=== PATIENT | female | born 1980 | race Caucasian/White ===

== ENCOUNTER 2017-09-28 14:17 | Outpatient (CLI) | payer MEDICAID, OTHER ==
[2017-09-28 19:10] LABS: BASOPHILS % (AUTO) 0.3 %; EOSINOPHILS # (AUTO) 0.1 10^3/uL (0.0-0.7); EOSINOPHILS % (AUTO) 0.8 %; HGB - HEMOGLOBIN 12.1 g/dL (12.0-16.0); LYMPHOCYTES # (AUTO) 1.9 10^3/uL (1.5-3.5); LYMPHOCYTES % (AUTO) 21.8 %; MEAN CORPUSCULAR HGB CONC 33.3 g/dL (32.0-36.0); MEAN CORPUSCULAR VOLUME 90.1 fL (81.0-99.0); MEAN PLATELET VOLUME 10.8 fL (7.9-10.8); MONOCYTES # (AUTO) 0.7 10^3/uL (0.0-1.0); MONOCYTES % (AUTO) 8.6 %; NEUTROPHILS % (AUTO) 68.5 %; PLT - PLATELET COUNT 281 10^3/uL (130-450); RED BLOOD COUNT 4.02 10^6/uL (4.20-5.40); RED CELL DISTRIBUTION WIDTH 14.1 % (12.0-15.0); WHITE BLOOD COUNT 8.7 x10^3/uL (4.8-10.8)
[2017-09-28 19:12] LABS: BILIRUBIN,URINE NEGATIVE (NEGATIVE); GLUCOSE, URINE (UA) NEGATIVE (NEGATIVE); KETONES,URINE (UA) NEGATIVE (NEGATIVE); LEUKOCYTE ESTERASE, URINE NEGATIVE (NEGATIVE); NITRITE,URINE NEGATIVE (NEGATIVE); OCCULT BLOOD,URINE NEGATIVE (NEGATIVE); PROTEIN,URINE NEGATIVE (NEGATIVE); UROBILINOGEN,URINE 0.2 (NORMAL) E.U./dL (NORMAL)
[2017-09-28 19:44] LABS: AMORPHOUS SEDIMENT,UR Marked /LPF; BACTERIA,URINE Few /HPF (None Seen); CLARITY,URINE CLOUDY (CLEAR); RBC,URINE 0-5 /HPF (0-5); SQUAMOUS EPITHELIAL CELL,UR MOD Squamous (<= Few)
[2017-09-29 14:18] LABS: HIV AG/AB 4TH GEN NON-REACTIVE (NON-REACTIVE)
[2017-09-29 14:31] LABS: HEPATITIS B SURFACE ANTIGEN NON-REACTIVE (NON-REACTIVE)
== END 2017-09-28 14:18 | disposition home or self-care (01) ==
LOC: LAB.N 14:17
PROVIDERS: ATTEND Obstetrics & Gynecology
DX: Z34.81 Encounter for supervision of other normal pregnancy, first trimester (principal)
CPT/HCPCS: 36415; 81001; 81599; 85025; 86762; 86850; 86900; 86901; 87340; 87389

== ENCOUNTER 2017-11-15 08:00 | Outpatient (CLI) | payer OTHER | END 2017-11-15 08:01 | disposition home or self-care (01) | LOC: LAB.N 08:00 | PROVIDERS: ATTEND Obstetrics & Gynecology | DX: Z36.0 Encounter for antenatal screening for chromosomal anomalies (principal) | CPT/HCPCS: 36415; 81599; 82105; 82677; 84702; 86336 ==

== ENCOUNTER 2017-12-22 12:49 | Outpatient (CLI) | payer OTHER ==
--- NOTE | 2017-12-22 16:02 | Ultrasound Report ---
OB ULTRASOUND: 12/22/2017 CLINICAL INDICATION: anatomy. TECHNIQUE: Real-time scanning was performed with fuels sales representative static images obtained. LAST MENSTRUAL PERIOD 07/26/2017 Clinical Age 21 weeks 2 days US Age 20 weeks 6 days EFW Hadlock 382 grams EFW% Hadlock -- Heart Rate 151 bpm EDC 05/02/2018 US EDC 05/05/2018 BPD Hadlock 20 weeks 6 days; Mean mm 49 HC Hadlock 21 weeks 1 day; Mean mm 188 AC Hadlock 20 weeks 6 days; Mean mm 157 FL Hadlock 20 weeks 5 days; Mean mm 34 Presentation variable Placental Location anterior Cervical Length TA 5.2 cm Amniotic Fluid subjectively normal; MVP 4.7 cm FINDINGS There is a single viable intrauterine gestation, in variable position. heart rate is 151 BPM. The placenta is anterior, without evidence of previa. Amniotic fluid volume is subjectively normal, with a deepest pocket of 4.7 cm. By size, the fetus measures 20 weeks 6 days ( 21 weeks 2 days by LMP). The following anatomic structures were visualized and appear normal: The intracranial contents, including the ventricles and posterior fossa; the heart, including 4 chamber view and outflow tracts, and diaphragm; the abdominal contents, including the stomach, the bilateral kidneys, and urinary bladder, as well as a normal 3-vessel cord insertion; 4 limbs. Imaging of the spine and facial structures was limited by positioning. No free fluid or adnexal lesion is appreciated. IMPRESSION: SINGLE VIABLE INTRAUTERINE GESTATION, WITH SIZE IN KEEPING WITH LMP DATING. SUBOPTIMAL VISUALIZATION OF THE SPINE AND FACIAL STRUCTURES, SECONDARY TO POSITIONING. TD: 12/22/2017 15:34 [facility]
== END 2017-12-22 12:50 | disposition home or self-care (01) ==
LOC: DI 12:49
PROVIDERS: ATTEND Obstetrics & Gynecology
DX: Z36.9 Encounter for antenatal screening, unspecified (principal)
CPT/HCPCS: 76811

== ENCOUNTER 2018-01-23 08:00 | Outpatient (CLI) | payer OTHER ==
[2018-01-23 19:21] LABS: HGB - HEMOGLOBIN 10.8 g/dL (12.0-16.0); MEAN CORPUSCULAR HEMOGLOBIN 28.7 pg (27.0-31.0); MEAN CORPUSCULAR HGB CONC 33.2 g/dL (32.0-36.0); MEAN CORPUSCULAR VOLUME 86.6 fL (81.0-99.0); MEAN PLATELET VOLUME 10.2 fL (7.9-10.8); RED BLOOD COUNT 3.78 10^6/uL (4.20-5.40); RED CELL DISTRIBUTION WIDTH 13.7 % (12.0-15.0); WHITE BLOOD COUNT 9.5 x10^3/uL (4.8-10.8)
== END 2018-01-23 08:01 | disposition home or self-care (01) ==
LOC: LAB.N 08:00
PROVIDERS: ATTEND Obstetrics & Gynecology
DX: Z34.90 Encounter for supervision of normal pregnancy, unspecified, unspecified trimester (principal)
CPT/HCPCS: 36415; 82950; 86850

== ENCOUNTER 2018-02-26 09:26 | Outpatient (CLI) | payer OTHER ==
--- NOTE | 2018-02-26 18:59 | Ultrasound Report ---
LIMITED OB ULTRASOUND: 02/26/2018 HISTORY: Suboptimal visualization of spine and facial structures on the 2017 anatomic ultrasound. TECHNIQUE: Real-time scanning by the inspector returned materials with saved static images reviewed. FINDINGS: First ultrasound 11/25/2017, EGA 30 weeks 2 days, DIMA 05/05/2018. Ultrasound measurements today: Biparietal diameter 7.9 cm, 31 weeks 6 days. Head circumference 30 cm, 33 weeks 2 days. Abdominal circumference 25.8 cm, 30 weeks. Femur length 5.9 cm, 30 weeks 4 days. Composite age by ultrasound measurements today 31 weeks 3 days, DIMA 04/27/2018. Estimated weight 1609 grams in the 49th percentile. cardiac activity 146 BPM. Presentation cephalic. Placenta position anterior. Amniotic fluid index 8.3 cm, MVP 4 cm. The spine is well seen today and no anomalies are identified. A profile cannot be obtained. nose and lips appear unremarkable. IMPRESSION: SINGLE INTRAUTERINE GESTATION. AGE BY COMPOSITE ULTRASOUND MEASUREMENTS TODAY 31 WEEKS 3 DAYS, DIMA 04/27/2018. ESTIMATED WEIGHT 49TH PERCENTILE. CERVIX LENGTH 5.4 CM. SPINE IS GROSSLY UNREMARKABLE. TD: 02/26/2018 16:13 [facility]
== END 2018-02-26 09:27 | disposition home or self-care (01) ==
LOC: DI 09:26
PROVIDERS: ATTEND Obstetrics & Gynecology
DX: Z36.2 Encounter for other antenatal screening follow-up (principal)
CPT/HCPCS: 76816

== ENCOUNTER 2018-03-09 08:04 | Outpatient (CLI) | payer OTHER | END 2018-03-09 08:05 | disposition home or self-care (01) | LOC: LAB 08:04 | PROVIDERS: ATTEND Obstetrics & Gynecology | DX: O99.810 Abnormal glucose complicating pregnancy (principal) | CPT/HCPCS: 36415; 82951; 82952 ==

== ENCOUNTER 2018-03-16 14:54 | Outpatient (CLI) | payer OTHER | END 2018-03-16 14:55 | disposition home or self-care (01) | LOC: LAB.R 14:54 | PROVIDERS: ATTEND Obstetrics & Gynecology | DX: R35.0 Frequency of micturition (principal) | CPT/HCPCS: 87086 ==

== ENCOUNTER 2018-03-23 15:24 | Outpatient (CLI) | payer OTHER ==
[2018-03-23 15:53] LABS: BILIRUBIN,URINE NEGATIVE (NEGATIVE); GLUCOSE, URINE (UA) NEGATIVE (NEGATIVE); KETONES,URINE (UA) NEGATIVE (NEGATIVE); LEUKOCYTE ESTERASE, URINE TRACE (NEGATIVE); NITRITE,URINE NEGATIVE (NEGATIVE); OCCULT BLOOD,URINE NEGATIVE (NEGATIVE); PROTEIN,URINE NEGATIVE (NEGATIVE); UROBILINOGEN,URINE 0.2 (NORMAL) E.U./dL (NORMAL)
[2018-03-23 15:58] LABS: CREATININE 0.7 mg/dL (0.4-1.0); URIC ACID 4.3 mg/dL (2.6-7.2)
[2018-03-23 16:07] LABS: CLARITY,URINE CLEAR (CLEAR)
[2018-03-23 16:08] LABS: BACTERIA,URINE None Seen /HPF (None Seen); RBC,URINE 0-5 /HPF (0-5); SQUAMOUS EPITHELIAL CELL,UR FEW Squamous (<= Few)
== END 2018-03-23 15:25 | disposition home or self-care (01) ==
LOC: LAB 15:24
PROVIDERS: ATTEND Obstetrics & Gynecology
DX: R03.0 Elevated blood-pressure reading, without diagnosis of hypertension (principal)
CPT/HCPCS: 36415; 81001; 82565; 83615; 84450; 84550

== ENCOUNTER 2018-03-30 12:47 | Outpatient (CLI) | payer OTHER | END 2018-03-30 12:48 | disposition home or self-care (01) | LOC: LAB.R 12:47 | PROVIDERS: ATTEND Obstetrics & Gynecology | DX: Z36.85 Encounter for antenatal screening for Streptococcus B (principal) | CPT/HCPCS: 87081 ==

== ENCOUNTER 2018-04-19 14:35 | Outpatient (CLI) | payer OTHER ==
--- NOTE | 2018-04-19 16:54 | Ultrasound Report ---
Procedure Date: 04/19/2018 Accession Number: [id number] / [id number] Procedure: US - OB F/U or Repeat CPT Code: FULL RESULT: EXAM: OB F/U or Repeat DATE: 04/19/2018 3:40 PM CLINICAL HISTORY: UTERINE SIZE-DATE DISCREPANCY, 3RD TRIM TECHNIQUE: Real-time scanning was performed with public health representative static images obtained. COMPARISON: 02/26/2018. LAST MENSTRUAL PERIOD: 07/26/2017 Clinical Age: 38 weeks 1 days US Age: 36 weeks 2 days EFW Hadlock: 2980 grams EFW % Hadlock: 33% Heart Rate: 135 bpm EDC: 05/02/2018 US EDC: 05/15/2018 BPD Hadlock: 37 weeks 0 days; Mean mm 91 HC Hadlock: 35 weeks 3 days; Mean mm 316 AC Hadlock: 36 weeks 2 days; Mean mm 323 FL Hadlock: 36 weeks 1 days; Mean mm 70 Presentation: Vertex Placental Location: Anterior Amniotic Fluid: TAB 10.5 cm; MVP 5.5 cm FINDINGS: A single live intrauterine gestation in vertex presentation with an anterior placenta without evidence of previa is identified with a heart rate of 135 beats per minutes. IMPRESSION: Single live intrauterine gestation with an ultrasound age of 36 weeks and 2 days on today's exam.
== END 2018-04-19 14:36 | disposition home or self-care (01) ==
LOC: DI 14:35
PROVIDERS: ATTEND Obstetrics & Gynecology
DX: O26.843 Uterine size-date discrepancy, third trimester (principal)
CPT/HCPCS: 76816

== ENCOUNTER 2018-04-26 16:04 | Outpatient (CLI) | payer OTHER ==
[2018-04-26 17:04] LABS: BASOPHILS # (AUTO) 0.1 10^3/uL (0.0-0.1); BASOPHILS % (AUTO) 0.6 %; EOSINOPHILS # (AUTO) 0.1 10^3/uL (0.0-0.7); EOSINOPHILS % (AUTO) 1.5 %; LYMPHOCYTES # (AUTO) 1.7 10^3/uL (1.5-3.5); MEAN CORPUSCULAR HEMOGLOBIN 25.7 pg (27.0-31.0); MEAN CORPUSCULAR HGB CONC 32.3 g/dL (32.0-36.0); MEAN CORPUSCULAR VOLUME 79.4 fL (81.0-99.0); MEAN PLATELET VOLUME 10.3 fL (7.9-10.8); MONOCYTES # (AUTO) 0.7 10^3/uL (0.0-1.0); MONOCYTES % (AUTO) 7.3 %; NEUTROPHILS # (AUTO) 6.6 10^3/uL (1.5-6.6); NEUTROPHILS % (AUTO) 72.6 %; PLT - PLATELET COUNT 308 10^3/uL (130-450); RED BLOOD COUNT 3.89 10^6/uL (4.20-5.40); RED CELL DISTRIBUTION WIDTH 15.9 % (12.0-15.0); WHITE BLOOD COUNT 9.2 x10^3/uL (4.8-10.8)
[2018-04-26 17:07] LABS: CREATININE 0.6 mg/dL (0.4-1.0)
[2018-04-26 17:12] LABS: URIC ACID 4.4 mg/dL (2.6-7.2)
[2018-04-26 17:18] LABS: BILIRUBIN,URINE NEGATIVE (NEGATIVE); GLUCOSE, URINE (UA) NEGATIVE (NEGATIVE); KETONES,URINE (UA) NEGATIVE (NEGATIVE); LEUKOCYTE ESTERASE, URINE SMALL (NEGATIVE); NITRITE,URINE NEGATIVE (NEGATIVE); OCCULT BLOOD,URINE TRACE-LYSE (NEGATIVE); PROTEIN,URINE NEGATIVE (NEGATIVE); UROBILINOGEN,URINE 0.2 (NORMAL) E.U./dL (NORMAL)
[2018-04-26 17:22] LABS: CLARITY,URINE CLEAR (CLEAR)
[2018-04-26 17:27] VITALS: BP 137/81
[2018-04-26 17:34] LABS: BACTERIA,URINE Few /HPF (None Seen); RBC,URINE 0-5 /HPF (0-5); SQUAMOUS EPITHELIAL CELL,UR MANY Squamous (<= Few)
[2018-04-26 17:37] LABS: CREATININE,URINE 48.9 mg/dL
[2018-04-26 17:40] LABS: TOTAL PROTEIN,URINE TIMED < 6 mg/dL
== END 2018-04-26 19:02 | disposition home or self-care (01) ==
LOC: WFO 16:04 → FBP 16:05 → WFO 19:02
PROVIDERS: ATTEND Obstetrics & Gynecology
DX: O13.3 Gestational [pregnancy-induced] hypertension without significant proteinuria, third trimester (principal); Z3A.39 39 weeks gestation of pregnancy
CPT/HCPCS: 36415; 81001; 81003; 82565; 82570; 83615; 84156; 84450; 84550; 85025; 87086; 99214

== ENCOUNTER 2018-04-26 21:36 | Inpatient (IN) | payer OTHER ==
--- NOTE | 2018-04-26 19:56 | HISTORY & PHYSICAL EXAMINATION ---
DATE OF SERVICE: 04/26/2018 Physician: Steve Verde MD LABOR AND DELIVERY ENCOUNTER NOTE DIAGNOSIS: Gestational hypertension (mild), 38-week 1-day gestation, elderly mother, reactive nonstress test. HISTORY OF PRESENT ILLNESS: Patient is a 37-year-old , 2, para 1-0-0-1 woman at 39 weeks 1 day gestation who [facility] Recently, she has been noted to have labile blood pressure. Her blood pressure on 04/19/2018 was 158/90. She has mild edema, but no visual changes or epigastric tenderness. She has no prepregnancy history of hypertension. Today, she was checked in the office by Dr. Colón and blood pressures were noted to be elevated at 144/90 and 144/88. She reports good movement. She was sent for NST, which was reactive with a baseline in the 130s. Previously, she was noted to have a lagging fundal height and her fetus is at the 30th percentile. We had a detailed discussion of gestational hypertension and current recommendations for induction. She is beyond 38 weeks and induction is recommended due to the possibility of suboptimal outcome such as maternal seizure, poor outcome, abruption, distress and possible emergent section. Patient states that she wants to talk to her mother prior to committing to induction. Additionally, her son is in school and she may have conflicting motivations to arrange childcare. The risks and benefits of induction were discussed. PHYSICAL EXAMINATION GENERAL: Anxious, alert, oriented. VITAL SIGNS: Blood pressure is now 130s/80s. HEENT: Supple neck. No thyromegaly. EOMI. LUNGS: Clear. CARDIAC: Regular. ABDOMEN: No epigastric tenderness. UTERUS: Acontractile. NST: Reactive. EXTERNAL GENITALIA: No lesions. VAGINA: No blood or discharge. CERVIX: 1 cm, 30% effaced, -1 to 2 cm (close to last week's baseline). EXTREMITIES: 1+ tibial edema extending up 3 cm. NEUROLOGIC: Cranial nerves grossly intact. Motor and sensory are grossly intact. Patellar reflexes 2+ left, 3+ right, 1 beat of clonus left, no right. LABORATORY DATA: Preeclampsia labs normal. ASSESSMENT: Patient realizes the risk associated with delaying Induction and delivery but she finds that induction to be best for her schedule tomorrow. She hopes to get all of her resources together so that she can be induced over the weekend. She is given warning sign and callback instructions. She realizes potential problems associated with delayed induction. PLAN: Patient will attempt to be available tomorrow afternoon for induction. If not, we will begin a biweekly NST and blood pressure checks with periodic urine creatinine-protein ratio. TD: 04/26/2018 18:59 REVISED: ORIG. SIGNED 04/27/2018@0758 ACCT CORRECTION 04/30/2018 sherrie MTDD
[2018-04-26] MEDS ORDERED: ONDANSETRON 4 MG/2 ML VIAL IVP PRN (22:17)
[2018-04-26] MEDS ORDERED: fentaNYL 100 MCG/2 ML VIAL IVP PRN (22:17)
[2018-04-26] MEDS ORDERED: SODIUM CHLORIDE FLUSH 0.9% 10 ML SYRINGE IVP PRN (22:17)
[2018-04-26] MEDS ORDERED: DINOPROSTONE 10 MG SUPP VG ONE (22:23)
[2018-04-26] MEDS ORDERED: ZOLPIDEM 5 MG TABLET PO PRN (22:24)
[2018-04-27 01:38] LABS: BASOPHILS # (AUTO) 0.3 10^3/uL (0.0-0.1); EOSINOPHILS # (AUTO) 0.1 10^3/uL (0.0-0.7); EOSINOPHILS % (AUTO) 1.1 %; HGB - HEMOGLOBIN 9.5 g/dL (12.0-16.0); LYMPHOCYTES # (AUTO) 1.4 10^3/uL (1.5-3.5); LYMPHOCYTES % (AUTO) 13.5 %; MEAN CORPUSCULAR HEMOGLOBIN 25.7 pg (27.0-31.0); MEAN CORPUSCULAR HGB CONC 33.1 g/dL (32.0-36.0); MEAN CORPUSCULAR VOLUME 77.7 fL (81.0-99.0); MEAN PLATELET VOLUME 10.1 fL (7.9-10.8); MONOCYTES # (AUTO) 0.8 10^3/uL (0.0-1.0); MONOCYTES % (AUTO) 7.6 %; NEUTROPHILS # (AUTO) 7.9 10^3/uL (1.5-6.6); NEUTROPHILS % (AUTO) 74.8 %; PLT - PLATELET COUNT 269 10^3/uL (130-450); RED BLOOD COUNT 3.67 10^6/uL (4.20-5.40); RED CELL DISTRIBUTION WIDTH 15.7 % (12.0-15.0); WHITE BLOOD COUNT 10.5 x10^3/uL (4.8-10.8)
[2018-04-27] MEDS: SODIUM CHLORIDE FLUSH 0.9% 10 ML SYRINGE IVP SCH ×3 (01:40→17:55)
[2018-04-27] MEDS: ACETAMINOPHEN 325 MG TABLET PO SCH ×4 (08:58→17:55)
[2018-04-27] MEDS: LACTATED RINGERS 1,000 ML IV SCH ×4 (08:58→16:50)
[2018-04-27] MEDS ORDERED: miSOPROStol 100 MCG TABLET BC SCH (15:29)
--- NOTE | 2018-04-27 16:32 | PROVIDER PROGRESS NOTE ---
Subjective - Prog Note Date Prog Note Date: 04/27/18 Prog Note Time: 16:29 - Subjective Subjective: Patient sitting in the chair. Feeling some contractions. Very upbeat. Excited to have the baby. Objective - Vital Signs/Intake & Output Vital Signs: Vital Signs x48h Temp Pulse Resp BP Pulse Ox 04/27/18 13:00 98.6 F 84 18 132/82 H 100 04/27/18 09:00 98.4 F 78 18 137/68 H 100 - Objective General Appearance: positive: No acute distress Eyes Bilateral: positive: Normal inspection Abdomen: positive: Non-tender (Gravid) Neurologic/Psychiatric: positive: Oriented x3 - Lab Results Fish Bones: 04/27/18 01:05 Other Labs: Lab Results x24hrs 04/27/18 Range/Units 01:05 WBC 10.5 (4.8-10.8) x10^3/uL RBC 3.67 L (4.20-5.40) 10^6/uL Hgb 9.5 L (12.0-16.0) g/dL Hct 28.5 L (37.0-47.0) % MCV 77.7 L (81.0-99.0) fL MCH 25.7 L (27.0-31.0) pg MCHC 33.1 (32.0-36.0) g/dL RDW 15.7 H (12.0-15.0) % Plt Count 269 (130-450) 10^3/uL MPV 10.1 (7.9-10.8) fL Neut # (Auto) 7.9 H (1.5-6.6) 10^3/uL Lymph # (Auto) 1.4 L (1.5-3.5) 10^3/uL [place]hel # (Auto) 0.8 (0.0-1.0) 10^3/uL Eos # (Auto) 0.1 (0.0-0.7) 10^3/uL Baso # (Auto) 0.3 H (0.0-0.1) 10^3/uL Absolute Nucleated RBC 0.01 x10^3/uL Nucleated RBC % 0.0 /100WBC - Other Results/Comments Other Results/Comments: CVE 2-3/50/-2 FHT's: Baseline 150's with category 1 tracing. Good LVT. No decels. Contractions: Q2-6 min Assessment/Plan - Problem List (1) Gestational hypertension Impression: 37 yo with a 39w2d IUP Gestational HTN, currently stable Cervix remote from delivery No S/s pre-eclampsia Given current frequency of contractions will start pitocin. AROM when cervix has descended more. Patient desires to go naturally. Declining Nitrox and epidural at this point in time. Qualifiers: Trimester: third trimester Qualified Code(s): O13.3 - Gestational [ -induced] hypertension without significant proteinuria, third trimester
[2018-04-27] MEDS ORDERED: OXYTOCIN/SODIUM CHLORIDE 500 ML IV SCH (17:00)
[2018-04-27] MEDS ORDERED: MORPHINE 10 MG/ML VIAL IVP ONE (23:00)
[2018-04-27] MEDS ORDERED: PROMETHAZINE 25 MG/1 ML VIAL IM SCH (23:01)
[2018-04-28] MEDS: SODIUM CHLORIDE FLUSH 0.9% 10 ML SYRINGE IVP SCH (06:26)
[2018-04-28] MEDS ORDERED: LACTATED RINGERS 1,000 ML IV ONE (06:38)
[2018-04-28] MEDS: LACTATED RINGERS 1,000 ML IV SCH (06:42)
[2018-04-28] MEDS: ACETAMINOPHEN 325 MG TABLET PO SCH ×4 (06:57→18:59)
[2018-04-28] MEDS ORDERED: fent/BUPIV 2 MCG/0.125% 250 ML EP ONE (09:53)
[2018-04-28] MEDS ORDERED: ROPIVACAINE 0.2% PF 20 ML AMPULE ONE (09:54)
[2018-04-28 10:44] LABS: HGB - HEMOGLOBIN 10.8 g/dL (12.0-16.0); MEAN CORPUSCULAR HEMOGLOBIN 25.3 pg (27.0-31.0); MEAN CORPUSCULAR HGB CONC 33.2 g/dL (32.0-36.0); MEAN CORPUSCULAR VOLUME 76.1 fL (81.0-99.0); MEAN PLATELET VOLUME 9.8 fL (7.9-10.8); RED BLOOD COUNT 4.27 10^6/uL (4.20-5.40); RED CELL DISTRIBUTION WIDTH 15.7 % (12.0-15.0)
[2018-04-28 10:56] LABS: ALBUMIN/GLOBULIN RATIO 0.8 (1.0-2.2); BILIRUBIN,TOTAL 0.4 mg/dL (0.2-1.0); CALCIUM 8.3 mg/dL (8.5-10.3); CREATININE 0.6 mg/dL (0.4-1.0); TOTAL PROTEIN 6.8 g/dL (6.7-8.2)
--- NOTE | 2018-04-28 11:01 | PROVIDER PROGRESS NOTE ---
Labor Progress Note - Uterine Monitoring Uterine Monitoring Mode: positive: External toco Contraction Frequency (min/apart): q3 min Contraction Intensity: positive: Strong Uterine Resting Tone: positive: Soft Other Uterine Monitorin-80 second contraction duration - Monitoring Monitor Mode: positive: External ultrasound Heart Rate Baseline: 145 Heart Rate Variability: positive: Moderate (6-25 bmp) Accelerations: positive: Present, 15x15 Decelerations: positive: Early, Variable Strip Review: positive: Category II - Vaginal Exam Dilation (in cm): 6 Effacement (%): 100 Station: -1 Cervical Position: Anterior - Labor Progress Note Labor Progress Note/Additional Text: S: Vaishali is slightly more comfortable w/ her epidural in place. She is still having significant RLQ discomfort w/ her uterine contractions & is breathing through them. She feels exhausted. Her mother & sister are present @ the bedside & are involved & very supportive. O: AAOx3, uncomfortable gravid female VSS BPs 140s/80s PET labs stable, platelets stable @295K, LFTs stable EFM: BL 145bpm, + accels, +early & variable decels to ophelia in 80s w/ spontaneous return to baseline w/in 60 seconds, two prolonged decelerations to ophelia in 90s s/ return to baseline w/ intrauterine resuscitative measures TOCO: UCs q 3 min x60-80 seconds w/ 3mU/min of Pitocin infusing SVE: 6/100/-1 AROM BBOW for moderate CAF A: 37 y/o @ 38 weeks' gestation, IOL for gestational HTN w/o s/sx PET GBS negative FHTs cat II w/o evidence of hypoxemia Progressive cervical change w/ Pitocin infusion Adequate pain control w/ epidural in place P: 1. Continue Pitocin infusion & titrate per protocol to maintain adequate labor pattern by tocometry 2. Reposition such that region of persistent discomfort is dependent to improve quality of anesthesia 3. Ongoing careful monitoring of FHTs w/ intrauterine resuscitative measures as indicated 4. Reassess cervical status x4 hours, earlier PRN 5. Reviewed optimal maternal positioning to facilitate descent & reviewed anticipatory guidance for 2nd stage labor 6. Encouraged maternal rest 7. Reviewed plan of care w/ pt, family & RN @ bedside; all in agreement, without concerns.
[2018-04-28] MEDS ORDERED: HYDROCORTISONE 1% CREAM 28 GM TUBE PR PRN (12:55)
[2018-04-28] MEDS ORDERED: OXYTOCIN/SODIUM CHLORIDE 250 ML IV ONE (12:55)
[2018-04-28] MEDS ORDERED: MAGNESIUM HYDROXIDE 2,400 MG/30 ML UDC PO PRN (12:55)
[2018-04-28] MEDS ORDERED: WITCH HAZEL/GLYCERIN 1 EACH MED..PAD TOP PRN (12:55)
[2018-04-28] MEDS ORDERED: HYDROCORTISONE/PRAMOXINE 10 GM PR PRN (12:55)
--- NOTE | 2018-04-28 13:05 | DELIVERY NOTE ---
Delivery Note - Labor Labor: positive: Augmented by ARM, Induced by oxytocin - Delivery Method Infant Delivery Method: positive: Spontaneous vaginal delivery - Presentation Presentation: positive: Vertex, MIKE - right occiput anterior - Nuchal Cord Nuchal Cord: positive: Present (R shoulder cord; baby somersaulted through w/ delivery of body) - Anesthetic Anesthetic Type: - Amniotic Fluid Description Amniotic Fluid Description: positive: Clear - Episiotomy Type Episiotomy Type: positive: None - Laceration Laceration: positive: 2nd degree, Vaginal - Suture Suture Type: positive: Vicryl Suture Size: positive: 2-0 - Delivery Outcome Delivery Outcome: positive: Livebirth - : positive: Placed in direct skin contact with mother, Stimulated, [place] used sex: positive: Female - Cord Cord: positive: 3 vessels - Placenta Placenta: positive: Spontaneous - Estimated Blood Loss Estimated Blood Loss (in cc): 300 - Post Delivery Events Post Delivery Events: positive: No post delivery events - Delivery Comments (Free Text/Narrative) Delivery Comments (Free Text/Narrative): Vaishali Smith is a 37 y/o [id number] who presented for preinduction cervical ripening for GHTN @ 39w2d w/o s/sx PET. She received 1 dose of vaginal cervidil followed by 1 dose of buccal misoprostol & progressed steadily to 3cm dilatation, at which point, she received Pitocin infusion to maintain adequate contraction pattern by tocometry; max infusion rate of 3mU/min. She received one dose of IVP fentanyl for analgesia & ultimately an epidural for anesthesia @ 6cm dilatation. She underwent AROM for moderate CAF @ 6cm dilatation @ 10: 30am, for a total ruptured duration of 2 hours. She progressed steadily to complete dilatation @ 1233, for a total 1st stage duration of 6 hours. FHTs were monitored electronically t/o & were cat I-II & consistently overall reassuring w/o s/sx hypoxemia. She pushed w/ spontaneous urge to viable female in MIKE position over an intact perineum @ 1238, for a total 2nd stage duration of 5 minutes. Tight R shoulder cord noted w/ delivery & somersaulted through w/ delivery of body; vigorous w/ spontaneous, lusty cry; placed to maternal abdomen for drying/stim. Apgars 9/9. Delayed cord clamping until cessation of pulsation, then cord clamped x2 by CNM, cut by patient. 3VC noted, cord blood obtained. Active management of the 3rd stage w/ Pitocin in IV fluids. Placenta del spontaneously & intact, Rich, @ 1240, for a total 3rd stage duration of 2 minutes. FF @ U. Vagina & perineum inspected & 2nd degree vaginal laceration noted; repaired under epidural anesthesia w/ 2-0 vicryl. Hemostatic. EBL 300mL. Patient reports previously successful experience, intends to breastfeed this time. Infant nuzzling @ breast w/in 15 minutes of delivery. Mother & stable.
[2018-04-28] MEDS: CELECOXIB 100 MG CAPSULE PO SCH (22:01)
[2018-04-28] MEDS: DOCUSATE SODIUM 100 MG CAPSULE PO SCH (22:02)
[2018-04-29] MEDS: CELECOXIB 100 MG CAPSULE PO SCH (09:12)
[2018-04-29] MEDS: DOCUSATE SODIUM 100 MG CAPSULE PO SCH (09:13)
[2018-04-29] MEDS: ACETAMINOPHEN 325 MG TABLET PO SCH ×3 (11:32→14:04)
[2018-04-29] MEDS ORDERED: MEASLES,MUMPS & RUBELLA VACC 0.5 ML VIAL SUBQ ONE (12:45)
--- NOTE | 2018-04-29 15:09 | Discharge Plan ---
Discharge Plan Disposition: 01 Home, Self Care Condition: Good Diet: Regular Activity Restrictions: pelvic rest x6 weeks Shower Restrictions: No Driving Restrictions: No Weight Bearing: Full Weight Instruction Topics: Vaginal After, Breastfeed How To, Exercises Kegel No Smoking: If you smoke, Please STOP! Call for help. Follow-up with: Rivas Myers PA-C [Primary Care Provider] - Andreina Colón DO [Provider Admit Priv/Credential] -
--- NOTE | 2018-04-29 15:11 | DISCHARGE SUMMARY ---
"Discharge Summary Admit Date: 04/26/18 Discharge Date: 04/29/18 Discharging Provider: JUSTIN Code Status: Attempt Resuscitation Condition at Discharge: Good Discharge Disposition: 01 Home, Self Care Discharge Facility Name: [facility] - DIAGNOSES Admission Diagnoses: gestational HTN @ 39 weeks' gestation Discharge Diagnoses with Status of Each Condition: - HPI History of Present Illness: Vaishali Saavedra is a 37 y/o [id number] who presented for preinduction cervical ripening @ 39w2d for gestational htn w/o s/sx PET; she received 1 dose of vaginal cervidil & 1 dose of buccal misoprostol & then received Pitocin infusion to achieve active labor. She received epidural anesthesia per request for pain management & underwent AROM for CAF. She progressed steadily to complete dilatation & delivered a viable female vaginally over an intact perineum w/o complication. - CONSULTS | PROCEDURES Consultations: anesthesia Procedures: preinduction cervical ripening induction of labor epidural placement AROM - HOSPITAL COURSE Hospital Course: , Vaishali is doing well. She is ambulating & voiding w/o incident. She is passing flatus & tolerating a regular diet. She is well w / excellent latch & reports a previously successful experience. She reports minimal lochia rubra & her pain is well-controlled w/ non-opioid analgesia. She is not planning another @ this time & intends POPs for pp contraception. She is planning to return to work x2 weeks & her partner will have 1 week off to assist her at home; she reports excellent social support & denies a hx of pp depression. She is able to fully articulate pp warning s/sx, including pp depression s/sx, and pp aftercare instructions. She is ready to leave the hospital. - ALLERGIES Allergies/Adverse Reactions: Allergies Allergy/AdvReac Type Severity Reaction Status Date / Time No Known Drug Allergies Allergy Verified 02/13/15 19:14 - PHYSICAL EXAM AT DISCHARGE General Appearance: positive: No acute distress, Mild distress Eyes Bilateral: positive: Normal inspection, PERRL, EOMI Respiratory: positive: Chest non-tender, No respiratory distress, Breath sounds nml Cardiovascular: positive: Regular rate & rhythm, No murmur Abdomen: positive: Non-tender, No distention, Other (FF U-2) Skin: positive: Color nml, No rash, Warm, Dry Extremities: positive: Non-tender, Full ROM, Nml appearance, No pedal edema. negative: Calf tenderness, Amanda's sign/cords Neurologic/Psychiatric: positive: Oriented x3, CN's nml (2-12), Motor nml, Sensation nml, Mood/affect nml - LABS Result Diagrams: 04/28/18 10:36 04/28/18 10:36 - FOLLOW UP Follow Up: x1 week w/ Dru Clayton CNM, earlier PRN - TIME SPENT Time Spent in Discharge (Minutes): 20"
[2018-04-29 15:51] VITALS: BP 120/70
== END 2018-04-29 15:51 | disposition home or self-care (01) | DRG 775 ==
LOC: WFO 21:36 → FBP 21:37 → WFO 22:16 → FBP 22:17
PROVIDERS: ADMIT Obstetrics & Gynecology; ATTEND Registered Nurse
PROC: 3E033VJ Introduction of Other Hormone into Peripheral Vein, Percutaneous Approach (ICD-10-PCS; 2018-04-27)
PROC: 3E0P7VZ Introduction of Hormone into Female Reproductive, Via Natural or Artificial Opening (ICD-10-PCS; 2018-04-27)
PROC: 10E0XZZ Delivery of Products of Conception, External Approach (ICD-10-PCS; principal; 2018-04-28)
PROC: 0KQM0ZZ Repair Perineum Muscle, Open Approach (ICD-10-PCS; 2018-04-28)
PROC: 10907ZC Drainage of Amniotic Fluid, Therapeutic from Products of Conception, Via Natural or Artificial Opening (ICD-10-PCS; 2018-04-28)
DX: O13.3 Gestational [pregnancy-induced] hypertension without significant proteinuria, third trimester (principal); O69.89X0 Labor and delivery complicated by other cord complications, not applicable or unspecified; O76 Abnormality in fetal heart rate and rhythm complicating labor and delivery; O70.1 Second degree perineal laceration during delivery; Z37.0 Single live birth; Z3A.39 39 weeks gestation of pregnancy
CPT/HCPCS: 36415; 59200; 80053; 81001; 81003; 82565; 82570; 83615; 84156; 84450; 84550; 85025; 85027; 86850; 86900; 86901; 87086; 99214

== ENCOUNTER 2018-07-21 18:48 | Emergency (ER) | payer OTHER ==
[2018-07-21 18:52] VITALS: BP 137/76
[2018-07-21] MEDS ORDERED: CETIRIZINE 10 MG TABLET PO STA (20:15)
--- NOTE | 2018-07-21 20:19 | ED Physician Documentation ---
PD HPI URI - Stated complaint Stated Complaint: SORE THROAT - Chief complaint Chief Complaint: Heent - History obtained from History obtained from: Patient, Friend - History of Present Illness Timing - onset: How many weeks ago (1) Timing duration: Weeks (1) Timing details: Gradual onset Pain level max: 6 Pain level now: 5 Associated symptoms: Nasal congestion, Rhinorrhea, Sore throat, Dry cough. No: Fever, Chills, Chest pain, Dyspnea, NVD Contributing factors: Sick contact. No: Travel, Immunocompromised, Unimmunized, COPD / asthma Improves by: Rest Worsened by: Activity, Breathing - Additional information Additional information: Patient states she is not , breast-feeding or trying to become Review of Systems Constitutional: denies: Fever, Chills GI: denies: Vomiting, Diarrhea : denies: Dysuria, Now EGA Skin: denies: Rash Musculoskeletal: denies: Neck pain, Back pain PD PAST MEDICAL HISTORY - Past Medical History Past Medical History: No - Past Surgical History Past Surgical History: No - Present Medications Home Medications: Ambulatory Orders Medication Instructions Recorded Confirmed Benzonatate [Tessalon Perle] 100 - 200 mg PO TID PRN #30 capsule 07/21/18 Cetirizine HCl/Pseudoephedrine 1 each PO BID PRN #30 tab.er.12h 07/21/18 [Zyrtec-D Tablet] - Allergies Allergies/Adverse Reactions: Allergies Allergy/AdvReac Type Severity Reaction Status Date / Time No Known Drug Allergies Allergy Verified 07/21/18 18:52 - Social History Does the pt smoke?: No Smoking Status: Never smoker Does the pt drink ETOH?: Yes Does the pt have substance abuse?: No - Immunizations Immunizations are current?: Yes - POLST Patient has POLST: No PD ED PE NORMAL - Vitals Vital signs reviewed: Yes - General General: Alert and oriented X 3, No acute distress - HEENT HEENT: PERRL, Ears normal, Moist mucous membranes, Pharynx benign - Neck Neck: Supple, no meningeal sign, No adenopathy - Cardiac Cardiac: RRR, Strong equal pulses - Respiratory Respiratory: No respiratory distress, Clear bilaterally - Abdomen Abdomen: Soft, Non tender, Non distended - Derm Derm: Warm and dry, No rash - Neuro Neuro: Alert and oriented X 3 - Psych Psych: Normal mood, Normal affect Results - Vitals Vitals: Vital Signs - 24 hr 07/21/18 18:50 Temperature 36.9 C Heart Rate 72 Respiratory 18 Rate Blood Pressure 137/76 H O2 Saturation 99 Oxygen O2 Source Room air - Labs Labs: Laboratory Tests 07/21/18 19:30 Group A Strep Rapid Negative PD MEDICAL DECISION MAKING - ED course Complexity details: reviewed results, considered differential, d/w patient ED course: Patient is a 30-year-old female who presents to the emergency department with what appears to be a viral upper respiratory infection. Rapid strep is negative. No evidence of pneumonia. No respiratory distress or hypoxia. We will continue supportive care and follow-up with her doctor. Given a dose of dexamethasone here. Also given a dose of Zyrtec. Patient counseled regarding signs and symptoms for which I believe and urgent re-evaluation would be necessary. Patient with good understanding of and agreement to plan and is comfortable going home at this time This document was made in part using voice recognition software. While efforts are made to proofread this document, sound alike and grammatical errors may occur. Departure - Departure Disposition: 01 Home, Self Care Clinical Impression: Viral URI with cough Condition: Good Instructions: ED URI Viral Follow-Up: Rivas Myers PA-C [Primary Care Provider] - As Needed Prescriptions: Benzonatate [Tessalon Perle] 100 - 200 mg PO TID PRN #30 capsule PRN Reason: Cough Cetirizine HCl/Pseudoephedrine [Zyrtec-D Tablet] 1 each PO BID PRN #30 tab.er.12h PRN Reason: Nasal Congestion Comments: Use the medications as prescribed. Return if you worsen. This should improve over the next week or so. Your strep test is negative today but a backup culture was sent and if it is positive we will call you with the results.
[2018-07-21] MEDS: DEXAMETHASONE 10 MG/ML VIAL PO STA ×2 (20:40→20:42)
== END 2018-07-21 20:47 | disposition home or self-care (01) ==
LOC: ED 18:48
DX: J06.9 Acute upper respiratory infection, unspecified (principal)
CPT/HCPCS: 87070; 87430; 99283; A9270

== ENCOUNTER 2019-01-20 15:13 | Outpatient (CLI) | payer OTHER ==
--- NOTE | 2019-01-21 09:49 | Ultrasound Report ---
Reason: TEST POSITIVE Procedure Date: 01/20/2019 Accession Number: [id number] / [id number] Procedure: US - OB First Trimester CPT Code: FULL RESULT: EXAM: FIRST TRIMESTER OBSTETRIC ULTRASOUND (Less than 11 weeks) EXAM DATE: 01/20/2019 04:48 PM. CLINICAL HISTORY: test positive. LMP: 11/15/2018. COMPARISONS: OB F/U OR REPEAT 04/19/2018 2:51 PM. TECHNIQUE: Transabdominal ultrasound examination with static image documentation. CLINICAL DATES: EGA 9 weeks 3 days with DIMA 08/22/2019 based on LMP. ASSESSMENT: Gestational Sac: Single intrauterine. Embryo: CRL (crown-rump length) 32.2 mm = 9 weeks 6 days with an DIMA of 08/19/2019. Cardiac activity: 167 beats per minute. Yolk sac: 5.8 mm. Amniotic fluid: Not accurately assessed at this gestational age. Early placenta: Not visible at this gestational age. Other: No perigestational fluid collection demonstrated. MATERNAL STRUCTURES: Uterus: Anteverted. Unremarkable. Cervix: Closed. Right Ovary/Adnexa: The ovary measures 2.7 x 1.6 x 1.8 cm, volume 4 cc. Unremarkable. Left Ovary/Adnexa: The ovary measures 5.2 x 3.7 x 4.7 cm, volume 47.2 cc. 3.9 x 3.3 x 3.8 cm. Anechoic left ovarian cyst noted. No concerning features are noted. Free Fluid: None. Other: None. IMPRESSION: 1. Single viable intrauterine at EGA 9 weeks 6 days with DIMA 08/19/2019 based on crown-rump length, which is concordant with clinical dates. 2. Assigned dating is DIMA 08/22/2019 based on LMP. 3. No complications such as a subchorionic hemorrhage. 4. 3.9 cm anechoic left ovarian cyst. Otherwise, both ovaries and adnexa are normal. RADIA
== END 2019-01-20 15:14 | disposition home or self-care (01) ==
LOC: DI 15:13
PROVIDERS: ATTEND Nurse Practitioner Obstetrics & Gynecology
DX: Z32.01 Encounter for pregnancy test, result positive (principal); O34.81 Maternal care for other abnormalities of pelvic organs, first trimester; N83.202 Unspecified ovarian cyst, left side; Z3A.09 9 weeks gestation of pregnancy
CPT/HCPCS: 76801

== ENCOUNTER 2019-02-01 08:00 | Outpatient (CLI) | payer OTHER ==
[2019-02-01 17:19] LABS: MUDS CUTOFF CONCENTRATIONS CUTOFF CONC BELOW:
[2019-02-01 18:06] LABS: AMPHETAMINE SCREEN,URINE NEGATIVE (NEGATIVE); BENZODIAZEPINES SCREEN, URINE NEGATIVE (NEGATIVE); COCAINE SCREEN URINE NEGATIVE (NEGATIVE); METHADONE SCREEN, URINE NEGATIVE (NEGATIVE); METHAMPHETAMINES SCREEN, URINE NEGATIVE (NEGATIVE); OPIATE SCREEN, URINE NEGATIVE (NEGATIVE); OXYCODONE SCREEN, URINE NEGATIVE (NEGATIVE); PROPOXYPHENE SCREEN, URINE NEGATIVE (NEGATIVE); TRICYCLIC ANTIDEPRESSANT,URINE NEGATIVE (NEGATIVE)
== END 2019-02-01 23:59 | disposition home or self-care (01) ==
LOC: LAB.R 08:00
PROVIDERS: ATTEND Obstetrics & Gynecology
DX: Z36.0 Encounter for antenatal screening for chromosomal anomalies (principal)
CPT/HCPCS: 80306

== ENCOUNTER 2019-02-01 15:31 | Outpatient (CLI) | payer OTHER ==
[2019-02-01 16:06] LABS: BILIRUBIN,URINE NEGATIVE (NEGATIVE); GLUCOSE, URINE (UA) NEGATIVE (NEGATIVE); KETONES,URINE (UA) NEGATIVE (NEGATIVE); LEUKOCYTE ESTERASE, URINE TRACE (NEGATIVE); NITRITE,URINE NEGATIVE (NEGATIVE); OCCULT BLOOD,URINE NEGATIVE (NEGATIVE); PROTEIN,URINE NEGATIVE (NEGATIVE); UROBILINOGEN,URINE 0.2 (NORMAL) E.U./dL (NORMAL)
[2019-02-01 16:09] LABS: CLARITY,URINE CLEAR (CLEAR)
[2019-02-01 16:12] LABS: BACTERIA,URINE Moderate /HPF (None Seen); RBC,URINE None Seen /HPF (0-5); SQUAMOUS EPITHELIAL CELL,UR MANY Squamous (<= Few); WBC CLUMPS,URINE PRESENT
[2019-02-01 16:17] LABS: BASOPHILS # (AUTO) 0.1 10^3/uL (0.0-0.1); BASOPHILS % (AUTO) 1.1 %; EOSINOPHILS # (AUTO) 0.1 10^3/uL (0.0-0.7); EOSINOPHILS % (AUTO) 1.3 %; HGB - HEMOGLOBIN 11.8 g/dL (12.0-16.0); LYMPHOCYTES # (AUTO) 2.5 10^3/uL (1.5-3.5); LYMPHOCYTES % (AUTO) 25.3 %; MEAN CORPUSCULAR VOLUME 82.5 fL (81.0-99.0); MEAN PLATELET VOLUME 9.8 fL (7.9-10.8); MONOCYTES # (AUTO) 0.7 10^3/uL (0.0-1.0); MONOCYTES % (AUTO) 6.6 %; NEUTROPHILS # (AUTO) 6.6 10^3/uL (1.5-6.6); NEUTROPHILS % (AUTO) 65.7 %; PLT - PLATELET COUNT 307 10^3/uL (130-450); RED CELL DISTRIBUTION WIDTH 16.3 % (12.0-15.0)
[2019-02-01 16:29] LABS: ALBUMIN 3.6 g/dL (3.2-5.5); ALKALINE PHOSPHATASE 67 IU/L (42-121); ALT ALANINE AMINOTRANSFERASE 13 IU/L (10-60); AST ASPARTATE AMINOTRANSFERASE 20 IU/L (10-42); BILIRUBIN,TOTAL < 0.2 mg/dL (0.2-1.0); BUN - BLOOD UREA NITROGEN 10 mg/dL (6-20); CALCIUM 9.3 mg/dL (8.5-10.3); CARBON DIOXIDE - CO2 20 mmol/L (21-32); CHLORIDE 107 mmol/L (101-111); CREATININE 0.6 mg/dL (0.4-1.0); GFR - MDRD 112 (>89); GLUCOSE 103 mg/dL (70-100); SODIUM 137 mmol/L (135-145); TOTAL PROTEIN 7.2 g/dL (6.7-8.2)
[2019-02-01 16:33] LABS: CREATININE,URINE 21.6 mg/dL
[2019-02-01 16:46] LABS: TOTAL PROTEIN,URINE TIMED < 6 mg/dL
[2019-02-02 08:03] LABS: HEPATITIS B SURFACE ANTIGEN NON-REACTIVE (NON-REACTIVE); HEPATITIS C ANTIBODY NON-REACTIVE (NON-REACTIVE)
[2019-02-04 16:56] LABS: HIV AG/AB 4TH GEN NON-REACTIVE (NON-REACTIVE)
== END 2019-02-01 15:32 | disposition home or self-care (01) ==
LOC: LAB 15:31
PROVIDERS: ATTEND Obstetrics & Gynecology
DX: Z36.0 Encounter for antenatal screening for chromosomal anomalies (principal)
CPT/HCPCS: 36415; 80053; 81001; 81220; 81243; 81329; 81599; 82570; 83021; 84156; 85014; 85018; 85025; 85041; 86592; 86762; 86803; 86850; 86900; 86901; 87086; 87340; 87389

== ENCOUNTER 2019-04-05 12:15 | Outpatient (CLI) | payer OTHER ==
--- NOTE | 2019-04-08 07:20 | Ultrasound Report ---
Reason: SCREENING, OTHER SPECIFIED,SUPERVISION O Procedure Date: 04/05/2019 Accession Number: [id number] / [id number] Procedure: US - OB Detailed Eval CPT Code: FULL RESULT: EXAM: COMPLETE OBSTETRICAL ULTRASOUND EXAM DATE: 04/05/2019 02:01 PM. CLINICAL HISTORY: anatomic survey in a 38-year-old female. COMPARISON: OB DETAILED EVAL 12/22/2017 12:55 PM. OB FIRST TRIMESTER 01/20/2019 3:45 PM. TECHNIQUE: Real-time sonographic evaluation of the fetus performed by the assistant construction superintendent. Multiple energy conservation representative static images were saved for review. Additional transvaginal imaging to more accurately evaluate cervical length/placental position/etc. DATING: EGA 20 weeks 1 day with DIMA 08/22/2019 based on LMP. EGA 21 weeks 2 days with DIMA 08/14/2019 based on the current ultrasound. GENERAL EVALUATION Correa . Cardiac Activity: 163 bpm. Movement: Visualized. Presentation: Variable. Placenta: Posterior position. No evidence for previa. 6 cm above the cervix. Umbilical Cord: 3 vessel cord. Central placental cord origin. Amniotic Fluid: Subjectively normal. MVP 4.6 cm. BIOMETRY BiParietal Diameter (BPD): 5.13 cm, 21 weeks 4 days Head Circumference (HC): 19.3 cm, 21 weeks 4 days Abdominal Circumference (AC): 15.8 cm, 21 weeks 0 days Femur Length (FL): 3.5 cm, 21 weeks 1 day Estimated Weight: 399 g, 91.3 percentile for 20 weeks 1 day. ANATOMY The intracranial structures, profile, face/nose/lips, spine, 4 chamber heart and outflow tracts, stomach, abdominal wall and cord insertion, diaphragm, kidneys, bladder, and extremities were visualized and demonstrate no abnormality. MATERNAL STRUCTURES Uterus: Unremarkable. Cervix: Long and closed. Transabdominal length 4.6 cm. Right Ovary/Adnexa: Unremarkable. Left Ovary/Adnexa: Unremarkable. Free Fluid: None. IMPRESSION: Study mildly technically limited by position and maternal body habitus. Single living intrauterine fetus in a variable lie, 21 weeks 2 days by current ultrasound study, correlates well with clinical dates by LMP of 20 weeks 1 day. Normal heart rate. Posterior placenta without previa. Normal amount of amniotic fluid. No anomalies noted. RADIA
== END 2019-04-05 12:16 | disposition home or self-care (01) ==
LOC: DI 12:15
PROVIDERS: ATTEND Obstetrics & Gynecology
DX: O09.92 Supervision of high risk pregnancy, unspecified, second trimester (principal); Z3A.21 21 weeks gestation of pregnancy; Z36.89 Encounter for other specified antenatal screening
CPT/HCPCS: 36415; 76811; 81599

== ENCOUNTER 2019-06-17 14:32 | Outpatient (CLI) | payer OTHER ==
[2019-06-17 19:11] LABS: HGB - HEMOGLOBIN 8.9 g/dL (12.0-16.0); MEAN CORPUSCULAR HEMOGLOBIN 23.9 pg (27.0-31.0); MEAN CORPUSCULAR HGB CONC 30.1 g/dL (32.0-36.0); MEAN CORPUSCULAR VOLUME 79.6 fL (81.0-99.0); RED BLOOD COUNT 3.72 10^6/uL (4.20-5.40); RED CELL DISTRIBUTION WIDTH 15.9 % (12.0-15.0); WHITE BLOOD COUNT 9.9 x10^3/uL (4.8-10.8)
[2019-06-17 19:45] LABS: CREATININE 0.7 mg/dL (0.4-1.0)
== END 2019-06-17 14:40 | disposition home or self-care (01) ==
LOC: LAB.N 14:32
PROVIDERS: ATTEND Obstetrics & Gynecology
DX: O13.2 Gestational [pregnancy-induced] hypertension without significant proteinuria, second trimester (principal)
CPT/HCPCS: 36415; 82565; 84450; 84460; 85027

== ENCOUNTER 2019-07-09 07:00 | Outpatient (CLI) | payer OTHER, MEDICAID ==
[2019-07-09 19:16] LABS: CANDIDA GROUP DNA POSITIVE (NEGATIVE); CANDIDA KRUSEI DNA NEGATIVE (NEGATIVE); TRICHOMONAS VAGINALIS DNA NEGATIVE (NEGATIVE)
== END 2019-07-09 23:59 | disposition home or self-care (01) ==
LOC: LAB.R 07:00
PROVIDERS: ATTEND Obstetrics & Gynecology
DX: B37.9 Candidiasis, unspecified (principal)
CPT/HCPCS: 87661; 87801

== ENCOUNTER 2019-07-22 15:28 | Outpatient (CLI) | payer OTHER, MEDICAID | END 2019-07-22 23:59 | disposition home or self-care (01) | LOC: LAB.N 15:28 | PROVIDERS: ATTEND Obstetrics & Gynecology | DX: O09.90 Supervision of high risk pregnancy, unspecified, unspecified trimester (principal) | CPT/HCPCS: 36415; 82950 ==

== ENCOUNTER 2019-07-26 08:00 | Outpatient (CLI) | payer OTHER, MEDICAID ==
[2019-07-26 20:25] LABS: TRICHOMONAS VAGINALIS DNA NEGATIVE (NEGATIVE)
== END 2019-07-26 23:59 | disposition home or self-care (01) ==
LOC: LAB.R 08:00
PROVIDERS: ATTEND Obstetrics & Gynecology
DX: Z36.85 Encounter for antenatal screening for Streptococcus B (principal); Z11.3 Encounter for screening for infections with a predominantly sexual mode of transmission; R30.0 Dysuria
CPT/HCPCS: 87086; 87491; 87591; 87661; 87797

== ENCOUNTER 2019-07-26 12:27 | Outpatient (CLI) | payer OTHER, MEDICAID ==
[2019-07-26 12:59] VITALS: BP 122/55
--- NOTE | 2019-07-26 19:00 | PROCEDURE REPORT ---
- HPI Diagnosis/Indication for NST: Other (AMA, likely GDM) Current EDU 08/22/19 Gestation 36 Weeks and 1 Days 3 Para 2 Vital Signs Temperature 98.4 F 07/26/19 12:56 Heart Rate 83 07/26/19 12:56 Respiratory Rate 16 07/26/19 12:56 Blood Pressure 122/55 L 07/26/19 12:56 O2 Saturation 100 07/26/19 12:56 Temperature 98.4 F 07/26/19 12:56 Heart Rate 83 07/26/19 12:56 Respiratory Rate 16 07/26/19 12:56 Blood Pressure 122/55 L 07/26/19 12:56 O2 Saturation 100 07/26/19 12:56 - NST Procedure NST Procedure Start Date 07/26/19 Start Time 12:40 Stop Time 13:10 Vibroacoustic Stimulation Used No Patient States Movement Yes 135 mod elías 15x15 accels no decels TOCO quiet - Results and Plan Findings/Impression: Cat I tracing Plan: Cont with routine OB care Twice weekly NST and weekly TAB
== END 2019-07-26 13:10 | disposition home or self-care (01) ==
LOC: WFO 12:27 → FBP 12:29 → WFO 13:10
PROVIDERS: ATTEND Obstetrics & Gynecology
DX: O09.523 Supervision of elderly multigravida, third trimester (principal); Z3A.36 36 weeks gestation of pregnancy
CPT/HCPCS: 59025

== ENCOUNTER 2019-07-29 14:33 | Outpatient (CLI) | payer OTHER, MEDICAID ==
[2019-07-29 14:54] VITALS: BP 130/71
--- NOTE | 2019-08-16 10:32 | PROCEDURE REPORT ---
- HPI Diagnosis/Indication for NST: Gestational Hypertension Current EDU 08/22/19 Gestation 36 Weeks and 4 Days 3 Para 2 Vital Signs Temperature 36.5 C 07/29/19 14:49 Heart Rate 74 07/29/19 14:49 Respiratory Rate 18 07/29/19 14:49 Blood Pressure 130/71 07/29/19 14:49 O2 Saturation 100 07/29/19 14:49 Temperature 36.5 C 07/29/19 14:49 Heart Rate 74 07/29/19 14:49 Respiratory Rate 18 07/29/19 14:49 Blood Pressure 130/71 07/29/19 14:49 O2 Saturation 100 07/29/19 14:49 - NST Procedure NST Procedure Start Date 07/29/19 Start Time 14:43 Stop Time 15:03 Vibroacoustic Stimulation Used No Patient States Movement Yes Reactive NST. - Results and Plan Findings/Impression: Reactive NST Plan: Continue NST
== END 2019-07-29 15:10 | disposition home or self-care (01) ==
LOC: WFO 14:33 → FBP 14:36 → WFO 15:10
PROVIDERS: ATTEND Obstetrics & Gynecology
DX: O09.523 Supervision of elderly multigravida, third trimester (principal); Z3A.36 36 weeks gestation of pregnancy
CPT/HCPCS: 59025

== ENCOUNTER 2019-08-01 14:43 | Outpatient (CLI) | payer OTHER, MEDICAID ==
[2019-08-01 15:01] VITALS: BP 121/74
--- NOTE | 2019-08-05 17:59 | PROCEDURE REPORT ---
- HPI Diagnosis/Indication for NST: Other (AMA, borderline HTN, borderline glucose tolerance) Current EDU 08/22/19 Gestation 37 Weeks and 0 Days 3 Para 2 Vital Signs Temperature 98.6 F 08/01/19 15:00 Heart Rate 76 08/01/19 15:00 Respiratory Rate 18 08/01/19 15:00 Blood Pressure 121/74 08/01/19 15:00 O2 Saturation 100 08/01/19 15:00 Temperature 98.6 F 08/01/19 15:00 Heart Rate 76 08/01/19 15:00 Respiratory Rate 18 08/01/19 15:00 Blood Pressure 121/74 08/01/19 15:00 O2 Saturation 100 08/01/19 15:00 - NST Procedure NST Procedure Start Date 08/01/19 Start Time 14:56 Stop Time 15:28 Vibroacoustic Stimulation Used No Patient States Movement Yes EFM 150 mod elías 15x15 accels no decels TOCO: Quiet - Results and Plan Findings/Impression: Cat I tracing Plan: 39 yo at 37w4d Cat I tracing Cont twice weekly NST Plan for iOl at 39 wga
--- NOTE | 2019-08-05 19:11 | PROCEDURE REPORT ---
- HPI Diagnosis/Indication for NST: Other (AGA) Current EDU 08/22/19 Gestation 37 Weeks and 0 Days 3 Para 2 Vital Signs Temperature 98.6 F 08/01/19 15:00 Heart Rate 76 08/01/19 15:00 Respiratory Rate 18 08/01/19 15:00 Blood Pressure 121/74 08/01/19 15:00 O2 Saturation 100 08/01/19 15:00 Temperature 98.6 F 08/01/19 15:00 Heart Rate 76 08/01/19 15:00 Respiratory Rate 18 08/01/19 15:00 Blood Pressure 121/74 08/01/19 15:00 O2 Saturation 100 08/01/19 15:00 - NST Procedure NST Procedure Start Date 08/01/19 Start Time 14:56 Stop Time 15:28 Vibroacoustic Stimulation Used No Patient States Movement Yes EFM 135 mod elías 15x15 accels no decels TOCO: quiet - Results and Plan Findings/Impression: 39 yo at 37w0d here for NST Cat I tracing Cont twice weekly NST and weekly TAB
== END 2019-08-01 15:30 | disposition home or self-care (01) ==
LOC: WFO 14:43 → FBP 14:45 → WFO 15:30
PROVIDERS: ATTEND Obstetrics & Gynecology
DX: O09.523 Supervision of elderly multigravida, third trimester (principal); O99.810 Abnormal glucose complicating pregnancy; R03.0 Elevated blood-pressure reading, without diagnosis of hypertension; Z3A.37 37 weeks gestation of pregnancy
CPT/HCPCS: 59025

== ENCOUNTER 2019-08-02 07:55 | Outpatient (CLI) | payer OTHER, MEDICAID | END 2019-08-02 07:56 | disposition home or self-care (01) | LOC: LAB 07:55 | PROVIDERS: ATTEND Obstetrics & Gynecology | DX: O09.529 Supervision of elderly multigravida, unspecified trimester (principal); O99.814 Abnormal glucose complicating childbirth; Z3A.00 Weeks of gestation of pregnancy not specified | CPT/HCPCS: 36415; 82951; 82952 ==

== ENCOUNTER 2019-08-05 14:28 | Outpatient (CLI) | payer OTHER, MEDICAID ==
[2019-08-05 15:05] VITALS: BP 124/77
--- NOTE | 2019-08-08 01:19 | PROCEDURE REPORT ---
- HPI Current EDU 08/22/19 Gestation 37 Weeks and 4 Days 3 Para 2 Vital Signs Temperature 98.2 F 08/05/19 14:47 Heart Rate 124 H 08/05/19 14:47 Respiratory Rate 16 08/05/19 14:47 Blood Pressure 124/77 08/05/19 14:47 Temperature 98.2 F 08/05/19 14:47 Heart Rate 124 H 08/05/19 14:47 Respiratory Rate 16 08/05/19 14:47 Blood Pressure 124/77 08/05/19 14:47 O2 Saturation - NST Procedure NST Procedure Start Date 08/05/19 Start Time 14:35 Stop Time 15:07 Vibroacoustic Stimulation Used No Patient States Movement Yes EFM 150 mod elías 15x15 accels no decels TOCO: quiet - Results and Plan Findings/Impression: Cat I tracing Cont with 2x/week NST
== END 2019-08-05 15:15 | disposition home or self-care (01) ==
LOC: WFO 14:28 → FBP 14:31 → WFO 15:15
PROVIDERS: ATTEND Obstetrics & Gynecology
DX: O09.523 Supervision of elderly multigravida, third trimester (principal); Z3A.37 37 weeks gestation of pregnancy
CPT/HCPCS: 59025

== ENCOUNTER 2019-08-08 14:57 | Outpatient (CLI) | payer OTHER, MEDICAID ==
[2019-08-08 15:10] VITALS: BP 125/62
--- NOTE | 2019-08-08 17:09 | PROCEDURE REPORT ---
- HPI Diagnosis/Indication for NST: Other (39 yo with borderline GDM) Current EDU 08/22/19 Gestation 38 Weeks and 0 Days 3 Para 2 Vital Signs Temperature 36.7 C 08/08/19 15:09 Heart Rate 71 08/08/19 15:09 Respiratory Rate 20 08/08/19 15:09 Blood Pressure 125/62 08/08/19 15:09 O2 Saturation 99 08/08/19 15:09 Temperature 36.7 C 08/08/19 15:09 Heart Rate 71 08/08/19 15:09 Respiratory Rate 20 08/08/19 15:09 Blood Pressure 125/62 08/08/19 15:09 O2 Saturation 99 08/08/19 15:09 - NST Procedure NST Procedure Start Date 08/08/19 Start Time 15:05 Stop Time 16:00 Vibroacoustic Stimulation Used No Patient States Movement Yes - Results and Plan Findings/Impression: base line 130-140. good variability with prolonged accelerations Good motion Plan: continue NST twice weekly
== END 2019-08-08 16:10 | disposition home or self-care (01) ==
LOC: WFO 14:57 → FBP 15:00 → WFO 16:10
PROVIDERS: ATTEND Obstetrics & Gynecology
DX: O99.89 Other specified diseases and conditions complicating pregnancy, childbirth and the puerperium (principal); R73.03 Prediabetes; Z3A.38 38 weeks gestation of pregnancy
CPT/HCPCS: 59025

== ENCOUNTER 2019-08-15 15:07 | Inpatient (IN) | payer OTHER, MEDICAID ==
[~2019-08-15 15:07] MED LIST: fentaNYL 100 MCG/2 ML VIAL IVP ONE
[2019-08-15 16:27] LABS: BASOPHILS % (AUTO) 0.4 %; EOSINOPHILS # (AUTO) 0.1 10^3/uL (0.0-0.7); EOSINOPHILS % (AUTO) 0.8 %; HGB - HEMOGLOBIN 8.4 g/dL (12.0-16.0); LYMPHOCYTES # (AUTO) 1.9 10^3/uL (1.5-3.5); LYMPHOCYTES % (AUTO) 20.7 %; MEAN CORPUSCULAR HEMOGLOBIN 22.7 pg (27.0-31.0); MEAN CORPUSCULAR HGB CONC 30.3 g/dL (32.0-36.0); MEAN CORPUSCULAR VOLUME 74.9 fL (81.0-99.0); MEAN PLATELET VOLUME 11.4 fL (7.9-10.8); MONOCYTES # (AUTO) 0.7 10^3/uL (0.0-1.0); MONOCYTES % (AUTO) 7.9 %; NEUTROPHILS # (AUTO) 6.3 10^3/uL (1.5-6.6); NEUTROPHILS % (AUTO) 69.5 %; PLT - PLATELET COUNT 254 10^3/uL (130-450); RED CELL DISTRIBUTION WIDTH 17.2 % (12.0-15.0)
[2019-08-15 16:43] LABS: ALBUMIN 2.7 g/dL (3.2-5.5); ALBUMIN/GLOBULIN RATIO 0.7 (1.0-2.2); BILIRUBIN,TOTAL 0.3 mg/dL (0.2-1.0); CALCIUM 8.2 mg/dL (8.5-10.3); CREATININE 0.7 mg/dL (0.4-1.0); TOTAL PROTEIN 6.4 g/dL (6.7-8.2)
[2019-08-15 17:05] LABS: CREATININE,URINE 77.5 mg/dL; PROTEIN/CREATININE RATIO,URINE 0.1 (<=0.2)
[2019-08-15] MEDS ORDERED: fentaNYL 100 MCG/2 ML VIAL IVP PRN (17:52)
[2019-08-15] MEDS ORDERED: miSOPROStoL 200 MCG TABLET PR PRN (17:52)
[2019-08-15] MEDS ORDERED: CARBOPROST TROMETHAMINE 250 MCG/ML AMP IM PRN (17:52)
[2019-08-15] MEDS ORDERED: TERBUTALINE 1 MG/ML VIAL SUBQ PRN (17:52)
[2019-08-15] MEDS ORDERED: METOCLOPRAMIDE 10 MG/2 ML VIAL IVP PRN (17:52)
[2019-08-15] MEDS ORDERED: ONDANSETRON 4 MG/2 ML VIAL IVP PRN (17:52)
[2019-08-15] MEDS ORDERED: SODIUM CHLORIDE FLUSH 0.9% 10 ML SYRINGE IVP PRN (17:52)
[2019-08-15] MEDS ORDERED: ACETAMINOPHEN 325 MG TABLET PO PRN (17:52)
[2019-08-15] MEDS ORDERED: ONDANSETRON ODT 4 MG TABLET TL PRN (17:52)
[2019-08-15] MEDS ORDERED: OXYTOCIN/DEXTROSE 5 % 30 UNIT/500 ML BAG IV PRN (17:52)
[2019-08-15] MEDS ORDERED: miSOPROStoL 100 MCG TABLET PO ONE (18:00)
[2019-08-15] MEDS ORDERED: LACTATED RINGERS 1,000 ML IV ONE (18:01)
--- NOTE | 2019-08-15 18:56 | HISTORY & PHYSICAL EXAMINATION ---
Chief Complaint - Chief Complaint Chief Complaint: NST History of Present Illness - History of Present Illness HPI Comment/Other: Here for routine NST today. BP elevated. No RUDOLPH, no visual change, no upper abd pain. no change in swelling--has been slightly swollen in the legs. No VB, no LOF. Good FM. No UC. No fevers. Feeling well recently. PMH: Overweight, alopecia, achalasia PSH: laparoscopic relaxation of GA in 2017 EGD 2013 SH: no t/e/d. Allergies: NKDA Meds: Fe, ASA 81mg OB datin08/19/19 by LMP c/w 9w US Anatomy: normal Labs: normal pap, O+, RI, GBS neg. Neg HSV hx. S/p varicella in childhood. Hct 29 in May Problems: --Hx of gestational hypertension with prior . Baseline PIH labs were normal. On ASA 81 mg daily. --AMA: normal quad screen, is on ASA --Mildly elevated 1h GTT, 3h was normal --Wants tubal; federal consent is mature --Anemia, has been on iron Vax: s/p flu and Tdap O: BP currently 120s/80s. On presentation to triage at 15:15 153/72. 143/78, 146/84 Alert, smiling, NAD Cor RRR no murmurs Lungs CTA bilat Abd soft, nt/nd Fundus NT 1+ DTR bilateral patellar 1+ edema over the ankle, non-pitting SVE 3/0/-3/soft/posterior; vertex NST: has been difficult to ascertain baseline. Moderate LTV is present with periods of marked variability. Tracing either with a baseline of 120 with accels, or with a baseline closer to 160 with variable decels. Currently baseline is clearly 120 BPM. Cobre: neg Labs: normal P:C ratio, plts, AST, ALT, Cr. Hct 27 History - Past Medical History MRSA Hx?: No - POLST Patient has POLST: No Meds/Allgy - Home Medications Home Medications: Ambulatory Orders Medication Instructions Recorded Confirmed Benzonatate [Tessalon Perle] 100 - 200 mg PO TID PRN #30 capsule 07/21/18 Cetirizine HCl/Pseudoephedrine 1 each PO BID PRN #30 tab.er.12h 07/21/18 [Zyrtec-D Tablet] - Allergies Allergies/Adverse Reactions: Allergies Allergy/AdvReac Type Severity Reaction Status Date / Time No Known Drug Allergies Allergy Verified 07/21/18 18:52 Exam - Vital Signs Vital Signs: Vital Signs x48h Temp Pulse Resp BP Pulse Ox 08/15/19 17:30 143/81 H 08/15/19 17:00 146/84 H 08/15/19 16:45 137/84 H 08/15/19 16:30 138/86 H 08/15/19 16:18 91/53 L 08/15/19 16:00 143/78 H 08/15/19 15:58 138/79 H 08/15/19 15:37 135/76 H 08/15/19 15:18 140/65 H 08/15/19 15:15 98.2 F 73 18 153/72 H 98 Conclusion/Plan - Problem List (1) Gestational hypertension Conclusion/Plan: 39yo at 39w0d by LMP c/w 9w US. Presented for surveillance due to IAN and hx of gestatational HTN. BP was consistently elevated this evening, labs normal, no sx, consistent with repeated gestational hypertension. If she has another elevated BP at 17:15 or after then she will meet the 4h criteria. Will watch for worsening sx or for development of higher BPs. MICROCYTIC ANEMIA: Hct 27, had been 29 2mos ago. Will cross for 2U PRBC. Plan for IV iron . IOL: vertex, GBS neg, category 1 NST. Andujar is 4. Will start with ripening / misoprostol. Pt had an initial tracing with an unknown baseline...it eventually leveled out to 120 BPM...unknown baseline likley secondary to sustained activity. Maintained moderate LTV throughout. Will monitor continuously. OK to eat now that baseline is clear. WANTS TUBAL: federal consent is signed, pt re-affirmed her desire for tubal. Qualifiers: Trimester: third trimester Qualified Code(s): O13.3 - Gestational [-induced] hypertension without significant proteinuria, third trimester - Lab Results Fish Bones: 08/15/19 16:16 08/15/19 16:16
--- NOTE | 2019-08-15 19:40 | PROVIDER PROGRESS NOTE ---
Labor Progress Note - Labor Progress Note Labor Progress Note/Additional Text: Patient received misoprostol 1h ago. Now having 7-8 contractions every 10min. Baseline 140, mod LTV present, decels absent. Pt is resting and chatting comfortably. Suspect more uterine irritability than true tachysystole. As fetus is tolerating the uterine activity, will not tocolyze now. Continue to observe. If ongoing induction medication is needed, will change to pitocin.
[2019-08-15] MEDS ORDERED: FAMOTIDINE 20 MG TABLET PO PRN (21:12)
[2019-08-15] MEDS: CALCIUM CARBONATE CHEW 500 MG TABLET PO PRN (21:40)
--- NOTE | 2019-08-15 22:20 | PROVIDER PROGRESS NOTE ---
Labor Progress Note - Labor Progress Note Labor Progress Note/Additional Text: No RUDOLPH, visual changes, or upper abd pain. Feeling contractions in the lower abdomen and legs, intensifying with time. Up to 7/10 pain BPs normal to mild range Category 1 NST [place] with 7UC in 10min. Palpate mild. A/P: tachysystole likely more uterine irritablity than tachysystole as her UC don't palpate strong and her fetus is tolerating the pattern well. will watch the labor progression, augment with pitocin if needed, continue to watch BPs, meets criteria now for gestational hypertension.
[2019-08-15] MEDS ORDERED: miSOPROStoL 100 MCG TABLET PO SCH (22:30)
[2019-08-16] MEDS ORDERED: OXYTOCIN/DEXTROSE 5 % 30 UNIT/500 ML BAG IV SCH (00:01)
[2019-08-16] MEDS ORDERED: SODIUM CHLORIDE FLUSH 0.9% 10 ML SYRINGE IVP SCH ×2 (01:00→17:00)
[2019-08-16] MEDS: CALCIUM CARBONATE CHEW 500 MG TABLET PO PRN (01:35)
[2019-08-16] MEDS ORDERED: CITRIC ACID/SODIUM CITRATE 15 ML UDC PO ONE (02:17)
[2019-08-16] MEDS ORDERED: MAG HYDROX/AL HYDROX/SIMETH 30 ML UDC PO PRN (02:17)
--- NOTE | 2019-08-16 02:21 | PROVIDER PROGRESS NOTE ---
Labor Progress Note - Labor Progress Note Labor Progress Note/Additional Text: Having a lot of heartburn, can't keep comfortable, involuntary valsalva BP normal to mild range Cat 1 NST [place] q2 SVE 6-7/75/-2, tight BOW A/P: reviewed pain control options, wanted to try nitrox but became quickly discouraged by the mask. Fentanyl given with good relief. Epidural called for per pt request. Heartburn is persistent and bothersome. Will try mylanta and pt may take bicitra For emesis zofran given
[2019-08-16] MEDS ORDERED: ROPIVACAINE EP ONE (02:25)
--- NOTE | 2019-08-16 02:29 | ANESTHESIA ---
Pre-Anesthesia VS, & Labs - Diagnosis Active labor - Procedure vaginal delivery Vital Signs: Temp Pulse Resp BP Pulse Ox 36.8 C 73 18 143/81 H 98 08/15/19 15:15 08/15/19 15:15 08/15/19 15:15 08/15/19 17:30 08/15/19 15:15 Height 5 ft 11 in Weight (kg) 105.233 kg Body Mass Index 28.7 - NPO Last Fluid Intake: clear liquids during labo - Is Patient ?: Yes - Lab Results Current Lab Results: Laboratory Tests 08/15/19 16:16: Blood Type Cancelled, Antibody Screen Cancelled, Crossmatch IS Only See Detail 08/15/19 16:16: Sodium 136, Potassium 3.6, Chloride 104, Carbon Dioxide 23, Anion Gap 9.0, BUN 10, Creatinine 0.7, Estimated GFR (MDRD) 93, Glucose 95, Calcium 8.2 L, Total Bilirubin 0.3, AST 20, ALT 12, Alkaline Phosphatase 142 H, Total Protein 6.4 L, Albumin 2.7 L, Globulin 3.7, Albumin/Globulin Ratio 0.7 L 08/15/19 16:16: WBC 9.0, RBC 3.70 L, Hgb 8.4 L, Hct 27.7 L, MCV 74.9 L, MCH 22.7 L, MCHC 30.3 L, RDW 17.2 H, Plt Count 254, MPV 11.4 H, Neut # (Auto) 6.3, Lymph # (Auto) 1.9, [place] # (Auto) 0.7, Eos # (Auto) 0.1, Baso # (Auto) 0.0, Absolute Nucleated RBC 0.00, Nucleated RBC % 0.0 08/15/19 16:16: Blood Type O POSITIVE, Antibody Screen NEGATIVE Fish Bones: 08/15/19 16:16 08/15/19 16:16 Home Medications and Allergies Active Medications Acetaminophen (Tylenol) 650 mg PO Q6H PRN PRN Reason: Pain or Fever Al Hydroxide/Mg Hydroxide (Mylanta Plus) 30 ml PO Q4HR PRN PRN Reason: INDIGESTION Calcium Carbonate/Glycine (Tums) 500 mg PO Q4H PRN PRN Reason: Heartburn Last Admin: 08/16/19 01:35 Dose: 500 mg Famotidine (Pepcid) 20 mg PO BID PRN PRN Reason: Heartburn Last Admin: 08/16/19 01:35 Dose: 20 mg OXYTOCIN/DEXTROSE 5 % (Pitocin/Dextrose 5%) 30 unit in 500 mls @ 999 mls/hr IV PRN PRN; Protocol PRN Reason: POST- HEMORR PREVENTION Metoclopramide HCl (Reglan Inj) 10 mg IVP Q6H PRN PRN Reason: Nausea / Vomiting Ondansetron HCl (Zofran Inj) 4 mg IVP Q4HR PRN PRN Reason: Nausea / Vomiting Last Admin: 08/16/19 02:00 Dose: 4 mg Ondansetron HCl (Zofran Odt) 4 mg TL Q4HR PRN PRN Reason: Nausea / Vomiting Sodium Chloride (Normal Saline Flush 0.9%) 10 ml IVP 0100,0900,1700 WHITNEY Sodium Chloride (Normal Saline Flush 0.9%) 10 ml IVP PRN PRN PRN Reason: NEEDED PER PROVIDER ORDERS Terbutaline Sulfate (Terbutaline) 0.25 mg SUBQ Q1H PRN PRN Reason: tachysystole Allergies/Adverse Reactions: Allergies Allergy/AdvReac Type Severity Reaction Status Date / Time No Known Drug Allergies Allergy Verified 07/21/18 18:52 Anes History & Medical History - Anesthetic History Anesthesia Complications: reports: No previous complications - Medical History Cardiovascular: reports: Hypertension (gestational hypertension) Pulmonary: reports: None Gastrointestinal: reports: GERD Urinary: reports: None Neuro: reports: None Musculoskeletal: reports: None Endocrine/Autoimmune: reports: None Blood Disorders: reports: Anemia Skin: reports: None Smoking Status: Never smoker Psychosocial: reports: No issues indicated - Surgical History General: Other (laparoscopy for acholatia) - Obstetrical History : 3 Parity: 2 Events: positive: Other (gestational hypertension) Complications: positive: None Exam General: Oriented x3 (pt drowsy after fentanyl), Cooperative Mouth Openin Fingerbreadth Neck Mobility: Normal Mallampati classification: III Thyromental Distance: greater than 6 cm Plan Anesthesia Type: Epidural Consent for Procedure(s) Verified and Reviewed: Yes Code Status: Attempt Resuscitation ASA classification: 2-Mild systemic disease Is this case an emergency?: No
[2019-08-16] MEDS ORDERED: ePHEDrine 50 MG/ML VIAL IVP PRN (02:33)
[2019-08-16] MEDS ORDERED: ONDANSETRON 4 MG/2 ML VIAL IVP PRN (02:33)
[2019-08-16] MEDS ORDERED: ROPIVACAINE 0.2% 200 MG/100 ML BAG EP PRN (02:33)
[2019-08-16] MEDS ORDERED: NALOXONE 0.4 MG/ML VIAL IVP PRN (02:33)
[2019-08-16] MEDS ORDERED: HYDROCORTISONE 1% CREAM 28 GM TUBE PR PRN (06:55)
[2019-08-16] MEDS ORDERED: WITCH HAZEL/GLYCERIN 1 PAD TOP PRN (06:55)
[2019-08-16] MEDS ORDERED: FERRIC GLUCONATE 125 MG in SODIUM CHLORIDE 0.9% 100ML 100 ML IV ONE ×2 (06:57→10:00)
[2019-08-16] MEDS ORDERED: LACTATED RINGERS 1,000 ML IV SCH (07:00)
--- NOTE | 2019-08-16 07:02 | DELIVERY NOTE ---
Delivery Note - Labor Labor: positive: Other (induced with misoprostol) - Delivery Method Infant Delivery Method: positive: Spontaneous vaginal delivery - Cervical Ripening Method Cervical Ripening Method: positive: Misoprostil - Presentation Presentation: positive: Vertex - Nuchal Cord Nuchal Cord: positive: None - Anesthetic Anesthetic Type: - Amniotic Fluid Description Amniotic Fluid Description: positive: Clear - Episiotomy Type Episiotomy Type: positive: None - Laceration Laceration: positive: 1st degree - Suture Suture Type: positive: Vicryl Suture Size: positive: 4-0 - Delivery Outcome Delivery Outcome: positive: Livebirth - [place]: positive: Placed in direct skin contact with mother, Stimulated, Warmed, [place] used [place] sex: positive: Male - Cord Cord: positive: 3 vessels - Placenta Placenta: positive: Intact, Spontaneous - Estimated Blood Loss Estimated Blood Loss (in cc): 100 - Post Delivery Events Post Delivery Events: positive: No post delivery events - Delivery Comments (Free Text/Narrative) Delivery Comments (Free Text/Narrative): IOL at 39w for gestational HTN. BPs were normal to mild range, no sx, normal labs. Needed one dose of misoprostol only. SROM clear about 3.5h prior to delivery. Pushed effectively over about 15min. NPO for tubal planned in a few hours, Vaishali reaffirms desire for permanent surgical sterilization. Consent signed. PP: s/p Tdap and flu vax. O+, RI Microcytic anemia: starting Hct was 27, had 100cc EBL. Will give IV iron now. 2U PRBCs available.
--- NOTE | 2019-08-16 11:35 | ANESTHESIA ---
Pre-Anesthesia VS, & Labs - Diagnosis desires sterilization - Procedure post tubal ligation Vital Signs: Temp Pulse Resp BP Pulse Ox 37.1 C 72 18 136/72 H 97 08/16/19 10:06 08/16/19 10:06 08/16/19 10:06 08/16/19 10:06 08/16/19 10:06 Height 5 ft 11 in Weight (kg) 105.233 kg Body Mass Index 28.7 - NPO Last Fluid Intake: npo clears since delivery Last Food Intake: >8 - Is Patient ?: No - Lab Results Current Lab Results: Laboratory Tests 08/15/19 16:16: Blood Type Cancelled, Antibody Screen Cancelled, Crossmatch IS Only See Detail 08/15/19 16:16: Sodium 136, Potassium 3.6, Chloride 104, Carbon Dioxide 23, Anion Gap 9.0, BUN 10, Creatinine 0.7, Estimated GFR (MDRD) 93, Glucose 95, Calcium 8.2 L, Total Bilirubin 0.3, AST 20, ALT 12, Alkaline Phosphatase 142 H, Total Protein 6.4 L, Albumin 2.7 L, Globulin 3.7, Albumin/Globulin Ratio 0.7 L 08/15/19 16:16: WBC 9.0, RBC 3.70 L, Hgb 8.4 L, Hct 27.7 L, MCV 74.9 L, MCH 22.7 L, MCHC 30.3 L, RDW 17.2 H, Plt Count 254, MPV 11.4 H, Neut # (Auto) 6.3, Lymph # (Auto) 1.9, [place] # (Auto) 0.7, Eos # (Auto) 0.1, Baso # (Auto) 0.0, Absolute Nucleated RBC 0.00, Nucleated RBC % 0.0 08/15/19 16:16: Blood Type O POSITIVE, Antibody Screen NEGATIVE Lab results reviewed: Yes Fish Bones: 08/15/19 16:16 08/15/19 16:16 Home Medications and Allergies Active Medications Ephedrine Sulfate () 5 mg IVP Q5M PRN PRN Reason: For SBP<100;give until SBP>100 Hydrocortisone (Hydrocortisone) 1 applic ME QID PRN PRN Reason: Hemorrhoids Ropivacaine (Naropin 0.2%) 200 mg in 100 mls @ 0 mls/hr EP PRN PRN; Protocol PRN Reason: PAIN Lactated Ringer's (Lr) 1,000 mls @ 100 mls/hr IV .Q10H WHITNEY Naloxone HCl (Narcan) 0.1 mg IVP Q2M PRN PRN Reason: RR<8 Ondansetron HCl (Zofran Inj) 4 mg IVP Q6HR PRN PRN Reason: Nausea / Vomiting [place]/Glycerin (Tucks) 1 pad TOP QID PRN PRN Reason: ITCHING Allergies/Adverse Reactions: Allergies Allergy/AdvReac Type Severity Reaction Status Date / Time No Known Drug Allergies Allergy Verified 07/21/18 18:52 Anes History & Medical History - Anesthetic History Anesthesia Complications: reports: No previous complications - Medical History Cardiovascular: reports: Hypertension (gestational hypertension) Pulmonary: reports: None Gastrointestinal: reports: GERD Urinary: reports: None Neuro: reports: None Musculoskeletal: reports: None Endocrine/Autoimmune: reports: None Blood Disorders: reports: Anemia Skin: reports: None Smoking Status: Never smoker Psychosocial: reports: No issues indicated - Surgical History General: Other (laparoscopy for acholatia) - Obstetrical History : 3 Parity: 2 Events: positive: Other (gestational hypertension) Complications: positive: None Exam General: Alert, Oriented x3, Cooperative Dental: WNL Mouth Openin Fingerbreadth Neck Mobility: Normal Mallampati classification: III Thyromental Distance: greater than 6 cm Respiratory: Lungs clear, Normal breath sounds Cardiovascular: Regular rate Neurological: Normal speech Mental/Cognitive Status: Alert/Oriented X3, Normal for patient Cognitive Status: Within normal limits Plan Anesthesia Type: Epidural Consent for Procedure(s) Verified and Reviewed: Yes Code Status: Attempt Resuscitation ASA classification: 2-Mild systemic disease Is this case an emergency?: No
[2019-08-16] MEDS ORDERED: BUPIVACAINE 0.5% PF 30 ML VIAL ONE (11:36)
[2019-08-16] MEDS ORDERED: LACTATED RINGERS 1,000 ML IV ONE (12:00)
[2019-08-16] MEDS ORDERED: BUPIVACAINE 0.5% PF 30 ML VIAL INFIL ONE ×2 (12:28)
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
[2019-08-16] MEDS ORDERED: SODIUM CHLORIDE FLUSH 0.9% 10 ML SYRINGE IVP PRN (13:09)
[2019-08-16] MEDS ORDERED: KETOROLAC 30 MG/ML VIAL IVP ONE (13:14)
[2019-08-16] MEDS ORDERED: PROPOFOL 200 MG/20 ML VIAL IVP ONE (13:14)
[2019-08-16] MEDS ORDERED: SIMETHICONE CHEW 80 MG TABLET PO SCH (14:00)
[2019-08-16] MEDS: ACETAMINOPHEN 500 MG TABLET PO SCH (15:08)
[2019-08-16] MEDS: IBUPROFEN 600 MG TABLET PO SCH (21:24)
[2019-08-16] MEDS: DOCUSATE SODIUM 100 MG CAPSULE PO SCH (21:24)
[2019-08-17] MEDS: ACETAMINOPHEN 500 MG TABLET PO SCH (05:07)
[2019-08-17 08:37] VITALS: BP 127/81
[2019-08-17] MEDS: DOCUSATE SODIUM 100 MG CAPSULE PO SCH (09:16)
[2019-08-17] MEDS: IBUPROFEN 600 MG TABLET PO SCH (09:16)
--- NOTE | 2019-08-17 10:08 | Discharge Plan ---
Discharge Plan Problem Reviewed?: Yes Disposition: Home, Self Care Condition: Fair Diet: Regular Activity Restrictions: No Restrictions Shower Restrictions: No Driving Restrictions: No No Smoking: If you smoke, Please STOP! Call for help. Follow-up with: Rossy Darling MD [Provider Admit Priv/Credential] -
--- NOTE | 2019-08-17 10:09 | PROVIDER PROGRESS NOTE ---
Objective - Vital Signs/Intake & Output Vital Signs: Vital Signs x48h Temp Pulse Resp BP Pulse Ox 08/17/19 08:36 97.7 F 67 18 127/81 H 100 08/17/19 05:14 97.9 F 81 16 142/73 H 100 Intake & Output: Intake & Output 08/14/19 08/15/19 08/16/19 08/17/19 23:59 23:59 23:59 23:59 Intake Total 500 Output Total 7177 921 Balance 500 -5330 -834 - Lab Results Fish Bones: 08/17/19 07:15 08/15/19 16:16 Other Labs: Lab Results x24hrs 08/17/19 Range/Units 07:15 Hct 28.3 L (37.0-47.0) % Assessment/Plan - Problem List (1) Gestational hypertension Impression: see discharge summary Qualifiers: Trimester: third trimester Qualified Code(s): O13.3 - Gestational [-induced] hypertension without significant proteinuria, third trimes ter
--- NOTE | 2019-08-17 14:54 | Labor Flowsheet ---
Labor Flowsheet Datetime Report Generated by CPN: 08/17/2019 14:53 Datetime: 08/17/2019 07:59 VITAL SIGNS NBP Sys/Janette/Mean (mmHg): 127 : 81 : 90 Pulse: 73 SpO2 (%): 100 LaborFlag: Labor Datetime: 08/16/2019 06:21 UTERINE ACTIVITY Monitor Mode: External Frequency (min): 2-3.5 Quality: Moderate Duration (sec): 80-100 Pattern: Normal: <= 5 Contractions in 10 Minutes Resting Tone (Palpate): Relaxed ASSESSMENT A Monitor Mode: External US FHR Baseline Rate : 125 Variability: Moderate 6-25 bpm Accelerations: 15X15 Decelerations: None Category: Category I Datetime: 08/16/2019 06:17 STAGE 2 Pushing: Coached on Pushing; Urge to Push Pushing Position: Pushing with Contractions Pushing Progress: Descent with Pushing Datetime: 08/16/2019 06:13 COMMUNICATION Communication: Provider at Bedside Provider Notified (Name): Dr. Phong Datetime: 08/16/2019 06:12 Communication Comments: updated with patient status Datetime: 08/16/2019 06:05 VAGINAL EXAM Dilatation (cm): 10.0 Effacement (%): 100 Station: 1 Exam by: H Conrad RN Datetime: 08/16/2019 05:57 Patient Position/Activity: High Fowlers Patient Care Comments: warm blankets given Datetime: 08/16/2019 05:08 Comments: changed to wired monitors d/t low battery on tele Datetime: 08/16/2019 04:52 Temperature (C): 36.4 Datetime: 08/16/2019 04:30 FHR Baseline Changes: No Baseline Change Datetime: 08/16/2019 04:11 Vaginal Bleeding: Normal Show Vaginal Exam Comments: anterior lip Datetime: 08/16/2019 03:53 Amniotic Fluid Color: Clear Membrane Comments: pt continues to leak clear fluid Datetime: 08/16/2019 03:14 Anesthesia Level Check: T10- Umbilicus Datetime: 08/16/2019 03:01 Membrane Status: Ruptured Membranes Rupture Method: Spontaneous Amniotic Fluid Amount: Small Nitrazine: Positive Datetime: 08/16/2019 02:54 Epidural Procedure Other: Pump Started Datetime: 08/16/2019 02:49 Epidural Procedure: Test Dose Datetime: 08/16/2019 02:45 Monitor Interventions for FHR: Ultrasound Adjusted Datetime: 08/16/2019 02:38 PROCEDURE TIME OUT Procedure Verify: Correct Patient Identity; Accurate Procedure Consent Form; Agreement on Procedure to be Done; Correct Patient Position; Safety Precautions Based on Patient History or Medication Use ANESTHESIA Anesthesia Plans: Epidural Anesthesia Comments: patient sitting for epidural Datetime: 08/16/2019 02:29 PATIENT CARE IV/Blood Work: IV Bolus Given ml @ 300 Datetime: 08/16/2019 02:09 MEDICATIONS Analgesics/Sedatives: Fentanyl (mcg) @ 100 Datetime: 08/16/2019 02:06 Stage of : Labor Notification Reason: Pain; Patient Request Datetime: 08/16/2019 02:00 Antiemetics/Antacids: Zofran (mg) @ 4 Datetime: 08/16/2019 01:43 Contraction Comments: pt states feeling urge to push, requests to be checked Datetime: 08/16/2019 00:27 I/O Interventions: Up to BR Datetime: 08/16/2019 00:24 TEACHING Pain Management: Comfort Measures Related: Activity and Rest Teaching Comments: Discussed non-pharmacological pain relief, labor positions. Pt. will try birthin g ball. Datetime: 08/16/2019 00:21 PAIN Pain Scale: 9 Pain Presence: Intermittent Pain Type: Contraction Pain Location: Abdomen Pain Coping: Breathing Through Contractions Cervix, Consistency: Soft Cervix, Position: Midposition Comfort Measures: Breathing/Relaxation; Family Support Datetime: 08/16/2019 00:13 Respirations: 20 Datetime: 08/15/2019 20:40 Pain Assessment Comments: pain with contractions Datetime: 08/15/2019 19:33 Provider Reviewed Strip: Yes Datetime: 08/15/2019 19:30 Oxygen Method: Room Air Datetime: 08/15/2019 19:13 Monitor Interventions for UA: [place] Adjusted Datetime: 08/15/2019 18:30 Cervical Ripening Agents: Cytotec @ (Annotations: 50 )
--- NOTE | 2019-08-17 19:12 | DISCHARGE SUMMARY ---
Physician: Rossy Darling MD DATE OF ADMISSION: 08/15/2019 DATE OF DISCHARGE: 08/17/2019 ADMITTING DIAGNOSES 1. Gestational hypertension. 2. Microcytic anemia, chronic, iron deficient. 3. Desires permanent surgical sterilization. DISCHARGE DIAGNOSES 1. Status post spontaneous vaginal delivery. 2. Status post tubal ligation. 3. Chronic macrocytic anemia, stable. OPERATIONS AND PROCEDURES 1. 08/16/2019: Spontaneous vaginal delivery of a liveborn male, weight 8 pounds 3 ounces, Apgars 9 at one minute and 9 at five minutes. She had a first-degree perineal laceration and 100 mL blood loss. 2. tubal ligation on 08/16/2019. Findings were normal and fallopian tubes on both sides, and she had an estimated blood loss of 10 mL. HOSPITAL COURSE: The patient was admitted for an induction. She had a history of gestational hypertension and while at [facility] Delivery for a routine NST, she had blood pressures with a systolic of the 150s. Ultimately her diagnosis remained gestational hypertension. She never developed any symptoms of preeclampsia. Her protein to creatinine, AST, ALT, and platelets were all normal. She was in the normal to mild range blood pressure-diego during labor and following delivery, all of her blood pressures were normal. The patient had chronic microcytic anemia during her . At her 28-week labs, her hematocrit was 29. She was started on iron, which she was taking occasionally. On admission, her hematocrit was 27. She was crossed for 2 units of packed red blood cells in case of excessive blood loss with delivery. Her delivery blood loss was minimal. Because of that, we were able to perform her elective sterilization. She received a dose of IV iron prior to discharge. She was encouraged to take her iron more faithfully at home for the next 2 months. She desired permanent surgical sterilization. This was performed. It was complicated by a very minor skin burn from the LigaSure device. This had completely healed by day 1. The patient was not requiring any narcotics for her pain, and she was not sent home on any. She was counseled that rarely tubals can fail, and that if she feels , she should take a test. If she is , she needs to see a physician that same day. By day 1, she was requesting discharge home. She was eating, ambulating, and urinating without difficulty. Her was going well, and her breasts were not having any problems. She was not having any significant pain on her umbilicus, fundus, or vulva. Her mood was good. PHYSICAL EXAMINATION VITAL SIGNS: She was afebrile with normal vital signs on discharge exam. GENERAL: She was alert and smiling, in no apparent distress. ABDOMEN: Soft, nontender, and nondistended. Fundus was firm and 2 cm above the umbilicus. EXTREMITIES: There was trace lower extremity edema on both sides. Notably, the patient did have an increased fundal height throughout her hospitalization. She was checked with ultrasound twice, and on both occasions, she was found to have a uterine cavity that was free of any retained products or clot. I believe that this is just her normal anatomic variant. DISCHARGE INSTRUCTIONS: Routine postop and precautions given. DISCHARGE MEDICATIONS 1. Ibuprofen p.r.n. pain. 2. Tylenol p.r.n. pain. 3. Colace p.r.n. to soften stool. 4. Bacitracin to apply to the surgical site to keep moist. FOLLOWUP: Follow up in [address] Darling. DISPOSITION: Home. DISCHARGE CONDITION: Good. TD: 08/17/2019 10:39 UMU
--- NOTE | 2019-08-17 19:35 | OPERATIVE REPORT ---
DATE OF SERVICE: 08/15/2019 Physician: Rossy Darling MD PREOPERATIVE DIAGNOSIS: Desires surgical sterilization. POSTOPERATIVE DIAGNOSES 1. Desires surgical sterilization. 2. A skin burn that was first-degree periumbilical, measuring 2 x 1 cm. PROCEDURE PERFORMED: bilateral salpingectomy. SURGEON: Rossy Darling MD. DRY MIXER: None. ANESTHESIA: Epidural and sedation. ESTIMATED BLOOD LOSS: 10 mL. PROPHYLAXIS: SCDs to bilateral lower extremities, no antibiotics indicated. IV FLUIDS: 400 mL. URINE OUTPUT: 700 mL. COUNTS: Correct x2. COMPLICATIONS: First-degree periumbilical skin burn measuring 2 x 1 cm secondary to LigaSure use. DISPOSITION: Stable to recovery room. SPECIMENS: Bilateral fallopian tubes sent to Pathology. COUNSELING: The patient reaffirmed her desire for permanent surgical sterilization. She had a vaginal delivery of a healthy infant a few hours prior. She had an epidural in place. She had signed the federal consent form more than a month ago. We discussed how the procedure was performed. Reviewed risks including but not limited to bleeding, infection, trauma to local organs, and anesthesia complications. She was counseled that rarely tubal ligations do fail. If she feels , she should take a test. If she is that she needs to seek medical care that day. All questions were answered, and the operative consent was signed. DESCRIPTION OF PROCEDURE: The patient was brought to the operating room where her existing epidural was bolused, and she underwent light sedation. She was left in a supine position. On exam, her uterus was found to be 4 cm above the umbilicus, even with her Tyson catheter in place and draining well. Due to this, I performed an ultrasound to make sure her uterus was empty, and it was. I believe that her uterine position was just her normal anatomic variant. The skin in the inferior portion of the umbilicus was numbed with local. An 11 blade was used to make a semilunar incision in the inferior umbilicus. The fascia was elevated with a Oralia and incised with Degroot scissors. The fascial incision was extended slightly with Degroot scissors. The peritoneum was entered bluntly. [employer] retractors were used to identify the right fallopian tube, which was grasped with a Mather. It was followed to its fimbriated end, which was drawn out of the incision. The LigaSure was used to divide the fallopian tube from the mesosalpinx. The fallopian tube was amputated about a centimeter from the uterine cornua. The same was performed on the contralateral side. The fascia was closed with a running layer of 0-Vicryl. The subcutaneous fat was closed with a single suture of 4-0 Vicryl. The skin was closed with a running subcuticular layer of 4-0 Monocryl. At the skin closure, a small burn was appreciated and it was in the shape of the LigaSure device. Bacitracin ointment was applied to the incision, followed by a 4 x 4 in the umbilicus and Tegaderm covering the incision. Notably, this burn had healed completely by postoperative day 1. The patient tolerated the procedure well. TD: 08/17/2019 10:40 UMU
== END 2019-08-17 13:15 | disposition home or self-care (01) | DRG 798 ==
LOC: WFO 15:07 → FBP 15:10 → WFO 17:52 → UNDOADMIN 17:53 → FBP 17:53 → UNDODISIN 08-17 13:15
PROVIDERS: ADMIT Obstetrics & Gynecology; ATTEND Obstetrics & Gynecology
PROC: 0UB70ZZ Excision of Bilateral Fallopian Tubes, Open Approach (ICD-10-PCS; 2019-08-16)
PROC: 0HQ9XZZ Repair Perineum Skin, External Approach (ICD-10-PCS; 2019-08-16)
PROC: 10E0XZZ Delivery of Products of Conception, External Approach (ICD-10-PCS; principal; 2019-08-16 12:20)
DX: O13.4 Gestational [pregnancy-induced] hypertension without significant proteinuria, complicating childbirth (principal); Z37.0 Single live birth; Z3A.39 39 weeks gestation of pregnancy; Z30.2 Encounter for sterilization; O99.02 Anemia complicating childbirth; D50.9 Iron deficiency anemia, unspecified; T45.4X6A Underdosing of iron and its compounds, initial encounter; O70.0 First degree perineal laceration during delivery; T21.12XA Burn of first degree of abdominal wall, initial encounter; Y65.8 Other specified misadventures during surgical and medical care; Y92.234 Operating room of hospital as the place of occurrence of the external cause; R12 Heartburn; Z91.128 Patient's intentional underdosing of medication regimen for other reason; Z79.82 Long term (current) use of aspirin
CPT/HCPCS: 36415; 59025; 80053; 82570; 84156; 85014; 85025; 86850; 86900; 86901; 86920; 99213; A9270; J2916; J7120; 88302

== ENCOUNTER 2021-01-25 14:39 | Outpatient (CLI) | payer MEDICAID, OTHER ==
[2021-01-25 19:18] LABS: T3 UPTAKE 41.6 % (32.0-48.4)
[2021-01-25 19:19] LABS: T4 (THYROXINE) 10.94 ug/dL (6.09-12.23)
[2021-01-25 19:22] LABS: THYROID STIMULATING HORMONE 0.83 uIU/mL (0.34-5.60)
[2021-01-27 13:43] LABS: ANA SCREEN NEGATIVE (NEGATIVE)
[2021-01-30 23:31] LABS: ENDOMYSIAL ANTIBODY SCR IGA NEGATIVE (NEGATIVE); GLIADIN (DEAMIDATED) AB IGA 4 U (<20); GLIADIN (DEAMIDATED) AB IGG 2 U (<20); IMMUNOGLOBULIN A 151 mg/dL (47-310); TISSUE TRANSGLUTAMINASE IGA <1 U/mL; TISSUE TRANSGLUTAMINASE IGG 4 U/mL
== END 2021-01-25 14:40 | disposition home or self-care (01) ==
LOC: LAB.N 14:39
PROVIDERS: ATTEND Registered Nurse
DX: R21 Rash and other nonspecific skin eruption (principal)
CPT/HCPCS: 36415; 81599; 82784; 83088; 83516; 84270; 84402; 84403; 84436; 84439; 84443; 84479; 86038; 86256